=== PATIENT | male | born 1945 | race Caucasian/White ===

== ENCOUNTER 2016-10-10 21:40 | Inpatient (IN) | payer MEDICARE, MEDICAID ==
[2016-10-10] MEDS ORDERED: Ondansetron 4 MG Tab.DIS PO PRN (23:44)
[2016-10-10] MEDS ORDERED: Magnesium Hydroxide 400 MG/5 ML Susp 30 ML Cup PO PRN (23:44)
[2016-10-10] MEDS ORDERED: Ondansetron 4 MG/2 ML SDV IV PRN (23:44)
[2016-10-10] MEDS ORDERED: CARBOXYMETHYLCELLULOSE SODIUM 1% EYELF PRN (23:57)
[2016-10-10] MEDS ORDERED: Polyethylene Glycol 3350 Powder 17 GM Packet PO PRN (23:57)
[2016-10-11] MEDS: Sodium Chloride 0.9% 1,000 ML IV SCH ×3 (00:22→15:17)
[2016-10-11] MEDS ORDERED: Levofloxacin/Dextrose 5%-Water 750 MG in Premix Bag 1 BAG IV ONE (00:38)
[2016-10-11] MEDS ORDERED: Levofloxacin/Dextrose 5%-Water 150 ML IV ONE ×2 (01:13→23:26)
[2016-10-11] MEDS: LORazepam 1 MG Tab PO SCH ×4 (03:23→21:09)
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
[2016-10-11] MEDS ORDERED: TACROLIMUS TOP SCH (09:00)
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
[2016-10-11] MEDS: Sucralfate 1 GM Tab PO SCH ×4 (09:37→21:08)
[2016-10-11] MEDS: Pantoprazole 40 MG Tab.CR PO SCH (09:37)
[2016-10-11] MEDS ORDERED: Levofloxacin/Dextrose 5%-Water 750 MG in Premix Bag 1 BAG IV SCH (10:00)
[2016-10-11] MEDS ORDERED: Magnesium Sulfate/Water 40 GM/1,000 ML BAG IV SCH (10:15)
[2016-10-11] MEDS ORDERED: Tuberculin, PPD 5 Units/0.1 ML 1 ML MDV IDERM ONE ×2 (10:21→10:30)
[2016-10-11] MEDS ORDERED: Sodium Chloride 0.9% 250 ML IV SCH (10:30)
[2016-10-11] MEDS: Thiamine 200 MG/2 ML MDV IV SCH (10:34)
[2016-10-11] MEDS: Lanolin/Mineral Oil/Petrolatum Ophth Oint 3.5 GM Tube EYELF SCH (21:33)
[2016-10-11] MEDS ORDERED: Sodium Chloride 0.9% 1,000 ML IV SCH (21:45)
[2016-10-11] MEDS: Levofloxacin/Dextrose 5%-Water 750 MG in Premix Bag 1 BAG IV SCH (23:39)
[2016-10-12] MEDS ORDERED: Tuberculin, PPD 5 Units/0.1 ML 1 ML MDV IDERM ONE (07:45)
[2016-10-12] MEDS: Sucralfate 1 GM Tab PO SCH ×4 (08:21→21:27)
[2016-10-12] MEDS: Pantoprazole 40 MG Tab.CR PO SCH (08:21)
[2016-10-12] MEDS: Thiamine 200 MG/2 ML MDV IV SCH (08:23)
[2016-10-12] MEDS: Polyvinyl Alcohol 1.4% Ophth Soln 15 ML Bottle EYELF PRN ×2 (08:25→21:21)
--- NOTE | 2016-10-12 08:46 | PCM.PN ---
- General Info Date of Service: 10/12/16 Subjective Update: No new symptoms overnight, except that the complaints of frequency of urination. He denies muscle weakness chest pain or shortness of breath. According to the nursing staff has been no withdrawal symptoms noted. However should be noted that he is a poor historian due to language barrier. No seizures have been reported normal vomiting or diarrhea. Functional Status: Reports: Tolerating Diet. Denies: New Symptoms - Review of Systems General: Denies: Fever, Weakness HEENT: Reports: No Symptoms Pulmonary: Reports: Cough Cardiovascular: Reports: No Symptoms Gastrointestinal: Reports: No Symptoms Genitourinary: Reports: Frequency. Denies: No Symptoms, Burning Musculoskeletal: Reports: No Symptoms Skin: Reports: No Symptoms Neurological: Reports: No Symptoms Psychiatric: Reports: No Symptoms - Patient Data Vitals - Most Recent: Last Vital Signs Temp 98.5 F 10/12/16 04:00 Pulse 70 10/12/16 06:00 Resp 23 H 10/12/16 06:00 BP 126/86 10/12/16 06:00 Pulse Ox 95 10/12/16 06:00 Weight - Most Recent: 75.75 kg I&O - Last 24 Hours: Intake & Output 10/11/16 10/12/16 10/12/16 22:59 06:59 14:59 Intake Total 1780 1189 Output Total 575 1750 Balance 1205 -561 Lab Results Last 24 Hours: Laboratory Results - last 24 hr 10/11/16 10/11/16 10/12/16 Range/Units 10:32 10:32 06:40 WBC 6.3 (4.5-12.0) X10-3/uL RBC 4.12 L (4.30-5.75) x10(6)uL Hgb 13.6 (11.5-15.5) g/dL Hct 41.1 (30.0-51.3) % MCV 99.7 H (80-96) fL MCH 33.0 (27.7-33.6) pg MCHC 33.1 (32.2-35.4) g/dL RDW 16.6 H (11.5-15.5) % Plt Count 19 L* (125-369) X10(3)uL MPV 8.1 (7.4-10.4) fL Neut % (Auto) 65.6 (46-82) % Lymph % (Auto) 23.8 (13-37) % Norman % (Auto) 7.7 (4-12) % Eos % (Auto) 2 (1.0-5.0) % Baso % (Auto) 1 (0-2) % Neut # (Auto) 4.2 (1.6-8.3) # Lymph # (Auto) 1.5 (0.6-5.0) # Norman # (Auto) 0.5 (0.0-1.3) # Eos # (Auto) 0.1 (0.0-0.8) # Baso # (Auto) 0.0 (0.0-0.2) # Sodium (135-145) mmol/L Potassium (3.5-5.3) mmol/L Chloride (100-110) mmol/L Carbon Dioxide (23-29) mmol/L BUN (8-23) mg/dL Creatinine (0.6-1.3) mg/dL Est Cr Clr Drug Dosing mL/min Estimated GFR (MDRD) (>60) BUN/Creatinine Ratio (9-20) Glucose (80-116) mg/dL Calcium (8.6-10.2) mg/dL Phosphorus (3.0-4.6) mg/dL Magnesium (1.8-2.5) mg/dL Total Bilirubin (0.1-1.3) mg/dL AST (5-27) IU/L ALT (14-26) IU/L Alkaline Phosphatase (56-112) IU/L Ammonia 51 Total Protein (6.0-8.0) g/dL Albumin (3.2-4.6) g/dL Globulin g/dL Albumin/Globulin Ratio Blood Type O POSITIVE Gel Antibody Screen Negative 10/12/16 Range/Units 06:40 WBC (4.5-12.0) X10-3/uL RBC (4.30-5.75) x10(6)uL Hgb (11.5-15.5) g/dL Hct (30.0-51.3) % MCV (80-96) fL MCH (27.7-33.6) pg MCHC (32.2-35.4) g/dL RDW (11.5-15.5) % Plt Count (125-369) X10(3)uL MPV (7.4-10.4) fL Neut % (Auto) (46-82) % Lymph % (Auto) (13-37) % Norman % (Auto) (4-12) % Eos % (Auto) (1.0-5.0) % Baso % (Auto) (0-2) % Neut # (Auto) (1.6-8.3) # Lymph # (Auto) (0.6-5.0) # Norman # (Auto) (0.0-1.3) # Eos # (Auto) (0.0-0.8) # Baso # (Auto) (0.0-0.2) # Sodium 134 L (135-145) mmol/L Potassium 3.0 L (3.5-5.3) mmol/L Chloride 106 (100-110) mmol/L Carbon Dioxide 25 (23-29) mmol/L BUN 5 L (8-23) mg/dL Creatinine 0.4 L (0.6-1.3) mg/dL Est Cr Clr Drug Dosing 186.74 mL/min Estimated GFR (MDRD) > 60 (>60) BUN/Creatinine Ratio 12.5 (9-20) Glucose 102 (80-116) mg/dL Calcium 6.6 L (8.6-10.2) mg/dL Phosphorus 1.9 L (3.0-4.6) mg/dL Magnesium 3.5 H* (1.8-2.5) mg/dL Total Bilirubin 2.9 H (0.1-1.3) mg/dL AST 133 H D (5-27) IU/L ALT 47 H D (14-26) IU/L Alkaline Phosphatase 118 H (56-112) IU/L Ammonia Total Protein 7.6 (6.0-8.0) g/dL Albumin 2.1 L (3.2-4.6) g/dL Globulin 5.5 g/dL Albumin/Globulin Ratio 0.4 Blood Type Gel Antibody Screen Alonzo Results Last 24 Hours: Microbiology 10/11/16 01:05 Aerobic Blood Culture - Preliminary Blood - Venous - Lab Draw NO GROWTH AFTER 1 DAY Anaerobic Blood Culture - Preliminary NO GROWTH AFTER 1 DAY 10/11/16 01:10 Aerobic Blood Culture - Preliminary Blood - Venous NO GROWTH AFTER 1 DAY Anaerobic Blood Culture - Preliminary NO GROWTH AFTER 1 DAY Med Orders - Current: Current Medications Artificial Tears (Artificial Tears) 0.5 gm EYELF BEDTIME [facility] Last Admin: 10/11/16 21:33 Dose: Not Given Artificial Tears (Liquitears 1.4% Ophth Soln) 0 ml EYELF Q2H PRN PRN Reason: Dry Eyes Last Admin: 10/12/16 08:25 Dose: 1 drop Levofloxacin/Dextrose 750 mg/ (Premix) 150 mls @ 100 mls/hr IV Q24H [facility] Last Admin: 10/11/16 23:39 Dose: 100 mls/hr Lorazepam (Ativan) 0 mg PO ASDIRECTED [facility] PRN Reason: Protocol Last Admin: 10/11/16 21:09 Dose: 1 mg Non-Formulary Medication (Tacrolimus [Protopic 0.1% Oint]) 1 applic TOP BID [facility] Ondansetron HCl (Zofran Odt) 4 mg PO Q4H PRN PRN Reason: nausea, able to take PO Ondansetron HCl (Zofran) 4 mg IV Q4H PRN PRN Reason: Nausea/Vomiting Pantoprazole Sodium (Protonix) 40 mg PO ACBREAKFAST [facility] Last Admin: 10/12/16 08:21 Dose: 40 mg Polyethylene Glycol (Miralax) 17 gm PO DAILY PRN PRN Reason: Constipation Potassium Chloride (Klor-Con M20) 20 meq PO BID [facility] Sucralfate (Carafate) 1 gm PO QIDACANDBED [facility] Last Admin: 10/12/16 08:21 Dose: 1 gm Thiamine HCl (Vitamin B-1) 100 mg IV DAILY [facility] Last Admin: 10/12/16 08:23 Dose: 100 mg Discontinued Medications Artificial Tears (Refresh Liquigel 1%) 0 ml EYELF Q2H PRN PRN Reason: Dry Eyes Sodium Chloride (Normal Saline) 1,000 mls @ 150 mls/hr IV ASDIRECTED [facility] Last Admin: 10/11/16 15:17 Dose: 150 mls/hr Levofloxacin/Dextrose 750 mg/ (Premix) 150 mls @ 100 mls/hr IV ONETIME ONE Stop: 10/11/16 02:07 Last Admin: 10/11/16 01:18 Dose: 100 mls/hr Levofloxacin/Dextrose (Levaquin In D5w 750 Mg/150 Ml) Confirm Administered Dose 150 mls @ as directed IV .STK-MED ONE Stop: 10/11/16 01:14 Last Admin: 10/11/16 02:03 Dose: Not Given Levofloxacin/Dextrose 750 mg/ (Premix) 150 mls @ 100 mls/hr IV Q24H [facility] Last Admin: 10/11/16 10:24 Dose: Not Given Magnesium Sulfate (Magnesium Sulfate 40 Gm In Water 1000 Ml) 40 gm in 1,000 mls @ 25 mls/hr IV ASDIRECTED [facility] PRN Reason: 1 GM/HR Sodium Chloride (Normal Saline) 250 mls @ 100 mls/hr IV ASDIRECTED [facility] Last Admin: 10/11/16 23:40 Dose: 100 mls/hr Sodium Chloride (Normal Saline) 1,000 mls @ 75 mls/hr IV ASDIRECTED [facility] Last Admin: 10/11/16 21:58 Dose: 75 mls/hr Levofloxacin/Dextrose (Levaquin In D5w 750 Mg/150 Ml) Confirm Administered Dose 150 mls @ as directed IV .STK-MED ONE Stop: 10/11/16 23:27 Last Admin: 10/11/16 23:38 Dose: Not Given Magnesium Hydroxide (Milk Of Magnesia) 30 ml PO Q12H PRN PRN Reason: Constipation Sucralfate (Carafate) 1 gm PO QID [facility] Last Admin: 10/11/16 21:08 Dose: 1 gm Tuberculin PPD (Aplisol) 5 unit IDERM ONETIME ONE Stop: 10/11/16 10:22 Last Admin: 10/12/16 08:21 Dose: 5 unit Tuberculin PPD (Aplisol) 5 unit IDERM ONETIME ONE Stop: 10/12/16 07:46 - Exam Quality Assessment: No: Supplemental Oxygen General: Alert, Oriented HEENT: Other (legally blind.left) Neck: Supple Lungs: Clear to Auscultation, Normal Respiratory Effort GI/Abdominal Exam: Normal Bowel Sounds, Soft, Non-Tender, No Organomegaly, No Distention, No Abnormal Bruit, No Mass, Pelvis Stable, Distended. No: Rebound, Tender (Male) Exam: No Hernia, Normal Inspection, Normal Prostate, Circumcised Extremities: Normal Inspection, Normal Range of Motion, Non-Tender, No Pedal Edema, Normal Capillary Refill Skin: Warm, Dry, Intact Wound/Incisions: Healing Well Neurological: No New Focal Deficit Psy/Mental Status: Alert, Normal Affect, Normal Mood - Problem List & Annotations (1) Withdrawal symptoms, alcohol SNOMED Code(s): 851381676 Code(s): F10.239 - ALCOHOL DEPENDENCE WITH WITHDRAWAL, UNSPECIFIED Status: Acute Current Visit: Yes Qualifiers: Complication of substance-induced condition: uncomplicated Qualified Code(s ): F10.230 - Alcohol dependence with withdrawal, uncomplicated (2) Hypomagnesemia SNOMED Code(s): 672920859 Code(s): E83.42 - HYPOMAGNESEMIA Status: Acute Current Visit: Yes (3) Thrombocytopenia SNOMED Code(s): 283565596 Code(s): D69.6 - THROMBOCYTOPENIA, UNSPECIFIED Status: Acute Current Visit: Yes (4) Alcoholism SNOMED Code(s): 3240535 Code(s): F10.20 - ALCOHOL DEPENDENCE, UNCOMPLICATED Status: Acute Current Visit: No Annotation/Comment:: Alcohol level at 0.5 in pm. Slight tremor. Patient is stable and wishes to be discharged. Does not want to treat / discuss alcohol use. Treatment x 1, remote. VSS. Discharge with . (5) UTI (urinary tract infection) SNOMED Code(s): 49523034 Code(s): N39.0 - URINARY TRACT INFECTION, SITE NOT SPECIFIED Status: Acute Current Visit: Yes Qualifiers: Hematuria presence: without hematuria (6) Pneumonia SNOMED Code(s): 049584798 Code(s): J18.9 - PNEUMONIA, UNSPECIFIED ORGANISM Status: Acute Current Visit: Yes Qualifiers: Laterality: left (7) Hypokalemia SNOMED Code(s): 84970474 Code(s): E87.6 - HYPOKALEMIA Status: Acute Current Visit: Yes (8) Legal blindness SNOMED Code(s): 96648700 Code(s): H54.8 - LEGAL BLINDNESS, DEFINED IN [place] Status: Chronic Current Visit: Yes (9) Ascites SNOMED Code(s): 545866946 Code(s): R18.8 - OTHER ASCITES Status: Acute Current Visit: Yes Qualifiers: Ascites type: due to alcoholic cirrhosis Qualified Code(s): K70.31 - Alcoholic cirrhosis of liver with ascites - Problem List Review Problem List Initiated/Reviewed/Updated: Yes - My Orders Last 24 Hours: My Active Orders 10/11/16 10:00 Thiamine [Vitamin B-1] 100 mg IV DAILY 10/11/16 10:12 LEGIONELLA,PNEUMO AG URINE [REF] Routine 10/11/16 10:23 Transfuse Platelets [COMM] Routine 10/11/16 10:32 M.PNEUMONIAE ABS, IGG & IGM [REF] Stat 10/12/16 00:00 Levofloxacin/Dextrose 5%-Water [Levaquin in D5W 750 MG/150 ML] 750 mg Premix Bag 1 bag IV Q24H 10/12/16 08:34 Convert IV to Saline Lock [OM.PC] Urgent 10/12/16 08:36 Patient Status Manage Transfer [TRANSFER] Routine 10/12/16 08:45 Potassium Chloride [Klor-Con M20] 20 meq PO BID 10/12/16 16:00 MAGNESIUM [CHEM] Routine 10/13/16 05:11 CBC WITH AUTO DIFF [HEME] AM COMPREHENSIVE METABOLIC PN,CMP [CHEM] AM - Plan Plan:: I will discontinue magnesium replacement because of iatrogenic hypermagensemia. A plan to repeat a magnesium level at 4 PM today. Also discontinued all IV fluids. I will repeat a CBC and CMP in the morning. Replaced potassium with potassium chloride orally starting today. I believe is getting ready for discharge but I will transfer him to a medical bed this morning,encourage ambulation with the hope of discharge tomorrow if stable. We are still waiting for the urine culture and the definitive x-ray report.
[2016-10-12] MEDS: Potassium Chloride 20 MEQ Tab.ER PO SCH ×2 (09:37→21:26)
[2016-10-12] MEDS ORDERED: Sodium Chloride 0.9% 250 ML IV SCH (09:45)
[2016-10-12] MEDS ORDERED: Acetaminophen 325 MG Tab PO PRN (15:43)
[2016-10-12] MEDS: Lanolin/Mineral Oil/Petrolatum Ophth Oint 3.5 GM Tube EYELF SCH (21:23)
[2016-10-12] MEDS: LORazepam 1 MG Tab PO SCH (21:29)
[2016-10-12] MEDS: Levofloxacin/Dextrose 5%-Water 750 MG in Premix Bag 1 BAG IV SCH (23:35)
[2016-10-13] MEDS: Pantoprazole 40 MG Tab.CR PO SCH (06:56)
[2016-10-13] MEDS: Sucralfate 1 GM Tab PO SCH ×2 (06:56→15:50)
[2016-10-13 07:58] VITALS: BP 136/76
--- NOTE | 2016-10-13 08:01 | PCM.PN ---
- General Info Date of Service: 10/13/16 Subjective Update: Patient feels better slept well overnight has no new complaints. He expresses interest to quit drinking but not in an inpatient status. He still has cold symptoms that include nasal congestion and cough but no fever or shortness of breath. He denies muscle weakness or chest pain. His oral intake has remained very good and he slept well last night. - Patient Data Vitals - Most Recent: Last Vital Signs Temp 98.3 F 10/13/16 04:39 Pulse 84 10/13/16 04:39 Resp 25 H 10/13/16 04:39 BP 138/83 10/13/16 04:39 Pulse Ox 95 10/13/16 04:39 Weight - Most Recent: 75.75 kg I&O - Last 24 Hours: Intake & Output 10/12/16 10/13/16 10/13/16 22:59 06:59 14:59 Intake Total 180 Balance 180 Lab Results Last 24 Hours: Laboratory Results - last 24 hr 10/12/16 10/13/16 10/13/16 Range/Units 16:10 06:28 06:28 WBC 6.9 (4.5-12.0) X10-3/uL RBC 4.15 L (4.30-5.75) x10(6)uL Hgb 13.7 (11.5-15.5) g/dL Hct 41.8 (30.0-51.3) % MCV 100.6 H (80-96) fL MCH 32.9 (27.7-33.6) pg MCHC 32.7 (32.2-35.4) g/dL RDW 16.7 H (11.5-15.5) % Plt Count 16 L* (125-369) X10(3)uL MPV 8.1 (7.4-10.4) fL Neut % (Auto) 59.9 (46-82) % Lymph % (Auto) 28.7 (13-37) % Thayer % (Auto) 8.6 (4-12) % Eos % (Auto) 2 (1.0-5.0) % Baso % (Auto) 0 (0-2) % Neut # (Auto) 4.1 (1.6-8.3) # Lymph # (Auto) 2.0 (0.6-5.0) # Thayer # (Auto) 0.6 (0.0-1.3) # Eos # (Auto) 0.2 (0.0-0.8) # Baso # (Auto) 0.0 (0.0-0.2) # Sodium 134 L (135-145) mmol/L Potassium 3.4 L (3.5-5.3) mmol/L Chloride 108 (100-110) mmol/L Carbon Dioxide 21 L (23-29) mmol/L BUN 5 L (8-23) mg/dL Creatinine 0.4 L (0.6-1.3) mg/dL Est Cr Clr Drug Dosing 186.74 mL/min Estimated GFR (MDRD) > 60 (>60) BUN/Creatinine Ratio 12.5 (9-20) Glucose 93 (80-116) mg/dL Calcium 6.9 L (8.6-10.2) mg/dL Magnesium 2.6 H (1.8-2.5) mg/dL Total Bilirubin 3.0 H (0.1-1.3) mg/dL AST 123 H (5-27) IU/L ALT 46 H (14-26) IU/L Alkaline Phosphatase 121 H (56-112) IU/L Total Protein 7.8 (6.0-8.0) g/dL Albumin 2.3 L (3.2-4.6) g/dL Globulin 5.5 g/dL Albumin/Globulin Ratio 0.4 Alonzo Results Last 24 Hours: Microbiology 10/10/16 20:00 Urine Culture - Final Urine, Bladder Staphylococcus Aureus 10/11/16 01:05 Aerobic Blood Culture - Preliminary Blood - Venous - Lab Draw NO GROWTH AFTER 2 DAYS Anaerobic Blood Culture - Preliminary NO GROWTH AFTER 2 DAYS 10/11/16 01:10 Aerobic Blood Culture - Preliminary Blood - Venous NO GROWTH AFTER 2 DAYS Anaerobic Blood Culture - Preliminary NO GROWTH AFTER 2 DAYS Med Orders - Current: Current Medications Acetaminophen (Tylenol) 650 mg PO Q6H PRN PRN Reason: Pain Last Admin: 10/12/16 16:03 Dose: 650 mg Artificial Tears (Artificial Tears) 0.5 gm EYELF BEDTIME [facility] Last Admin: 10/12/16 21:23 Dose: 1 applicful Artificial Tears (Liquitears 1.4% Ophth Soln) 0 ml EYELF Q2H PRN PRN Reason: Dry Eyes Last Admin: 10/12/16 21:21 Dose: 1 drop Levofloxacin/Dextrose 750 mg/ (Premix) 150 mls @ 100 mls/hr IV Q24H [facility] Last Admin: 10/12/16 23:35 Dose: 100 mls/hr Sodium Chloride (Normal Saline) 250 mls @ 100 mls/hr IV ASDIRECTED [facility] Lorazepam (Ativan) 0 mg PO ASDIRECTED [facility] PRN Reason: Protocol Last Admin: 10/12/16 21:29 Dose: 1 mg Non-Formulary Medication (Tacrolimus [Protopic 0.1% Oint]) 1 applic TOP BID [facility] Ondansetron HCl (Zofran Odt) 4 mg PO Q4H PRN PRN Reason: nausea, able to take PO Ondansetron HCl (Zofran) 4 mg IV Q4H PRN PRN Reason: Nausea/Vomiting Pantoprazole Sodium (Protonix) 40 mg PO ACBREAKFAST [facility] Last Admin: 10/13/16 06:56 Dose: 40 mg Polyethylene Glycol (Miralax) 17 gm PO DAILY PRN PRN Reason: Constipation Potassium Chloride (Klor-Con M20) 20 meq PO BID [facility] Last Admin: 10/12/16 21:26 Dose: 20 meq Sucralfate (Carafate) 1 gm PO QIDACANDBED [facility] Last Admin: 10/13/16 06:56 Dose: 1 gm Thiamine HCl (Vitamin B-1) 100 mg IV DAILY [facility] Last Admin: 10/12/16 08:23 Dose: 100 mg Discontinued Medications Artificial Tears (Refresh Liquigel 1%) 0 ml EYELF Q2H PRN PRN Reason: Dry Eyes Sodium Chloride (Normal Saline) 1,000 mls @ 150 mls/hr IV ASDIRECTED [facility] Last Admin: 10/11/16 15:17 Dose: 150 mls/hr Levofloxacin/Dextrose 750 mg/ (Premix) 150 mls @ 100 mls/hr IV ONETIME ONE Stop: 10/11/16 02:07 Last Admin: 10/11/16 01:18 Dose: 100 mls/hr Levofloxacin/Dextrose (Levaquin In D5w 750 Mg/150 Ml) Confirm Administered Dose 150 mls @ as directed IV .STK-MED ONE Stop: 10/11/16 01:14 Last Admin: 10/11/16 02:03 Dose: Not Given Levofloxacin/Dextrose 750 mg/ (Premix) 150 mls @ 100 mls/hr IV Q24H [facility] Last Admin: 10/11/16 10:24 Dose: Not Given Magnesium Sulfate (Magnesium Sulfate 40 Gm In Water 1000 Ml) 40 gm in 1,000 mls @ 25 mls/hr IV ASDIRECTED [facility] PRN Reason: 1 GM/HR Sodium Chloride (Normal Saline) 250 mls @ 100 mls/hr IV ASDIRECTED [facility] Last Admin: 10/11/16 23:40 Dose: 100 mls/hr Sodium Chloride (Normal Saline) 1,000 mls @ 75 mls/hr IV ASDIRECTED [facility] Last Admin: 10/11/16 21:58 Dose: 75 mls/hr Levofloxacin/Dextrose (Levaquin In D5w 750 Mg/150 Ml) Confirm Administered Dose 150 mls @ as directed IV .STK-MED ONE Stop: 10/11/16 23:27 Last Admin: 10/11/16 23:38 Dose: Not Given Magnesium Hydroxide (Milk Of Magnesia) 30 ml PO Q12H PRN PRN Reason: Constipation Sucralfate (Carafate) 1 gm PO QID [facility] Last Admin: 10/11/16 21:08 Dose: 1 gm Tuberculin PPD (Aplisol) 5 unit IDERM ONETIME ONE Stop: 10/11/16 10:22 Last Admin: 10/12/16 08:21 Dose: 5 unit - Exam Quality Assessment: No: Supplemental Oxygen General: Alert, Oriented, Cooperative HEENT: Other (legally blind) Neck: Supple Lungs: Clear to Auscultation, Normal Respiratory Effort Cardiovascular: Regular Rate, Regular Rhythm Psy/Mental Status: Alert, Normal Affect, Normal Mood - Problem List & Annotations (1) Withdrawal symptoms, alcohol SNOMED Code(s): 078532986 Code(s): F10.239 - ALCOHOL DEPENDENCE WITH WITHDRAWAL, UNSPECIFIED Status: Acute Current Visit: Yes Qualifiers: Complication of substance-induced condition: uncomplicated Qualified Code(s ): F10.230 - Alcohol dependence with withdrawal, uncomplicated (2) Hypomagnesemia SNOMED Code(s): 685070916 Code(s): E83.42 - HYPOMAGNESEMIA Status: Acute Current Visit: Yes (3) Thrombocytopenia SNOMED Code(s): 173813870 Code(s): D69.6 - THROMBOCYTOPENIA, UNSPECIFIED Status: Acute Current Visit: Yes (4) Alcoholism SNOMED Code(s): 8445913 Code(s): F10.20 - ALCOHOL DEPENDENCE, UNCOMPLICATED Status: Acute Current Visit: No Annotation/Comment:: Alcohol level at 0.5 in pm. Slight tremor. Patient is stable and wishes to be discharged. Does not want to treat / discuss alcohol use. Treatment x 1, remote. VSS. Discharge with . (5) UTI (urinary tract infection) SNOMED Code(s): 71593371 Code(s): N39.0 - URINARY TRACT INFECTION, SITE NOT SPECIFIED Status: Acute Current Visit: Yes Qualifiers: Hematuria presence: without hematuria (6) Pneumonia SNOMED Code(s): 877429198 Code(s): J18.9 - PNEUMONIA, UNSPECIFIED ORGANISM Status: Acute Current Visit: Yes Qualifiers: Laterality: left (7) Hypokalemia SNOMED Code(s): 19656457 Code(s): E87.6 - HYPOKALEMIA Status: Acute Current Visit: Yes (8) Legal blindness SNOMED Code(s): 43597966 Code(s): H54.8 - LEGAL BLINDNESS, DEFINED IN [place] Status: Chronic Current Visit: Yes (9) Ascites SNOMED Code(s): 717893651 Code(s): R18.8 - OTHER ASCITES Status: Acute Current Visit: Yes Qualifiers: Ascites type: due to alcoholic cirrhosis Qualified Code(s): K70.31 - Alcoholic cirrhosis of liver with ascites - Problem List Review Problem List Initiated/Reviewed/Updated: Yes - My Orders Last 24 Hours: My Active Orders 10/12/16 08:34 Convert IV to Saline Lock [OM.PC] Urgent 10/12/16 09:00 Potassium Chloride [Klor-Con M20] 20 meq PO BID 10/12/16 09:45 Sodium Chloride 0.9% [Normal Saline] 250 ml IV ASDIRECTED 10/12/16 15:43 Acetaminophen [Tylenol] 650 mg PO Q6H PRN - Plan Plan:: I I will discharge him home today. I reviewed his urine culture that showed Staphylococcus aureus, sensitive to Augmentin. I will discharge him home on this hopefully to cover his infiltrate in the left chest area. Like him to come back to the office on Thursday for follow-up. His platelets are still low and he will need to be seen by a GI specialist because of the alcoholic liver cirrhosis. I will also send him home on CAMPRAL,for ETOH treatement
[2016-10-13] MEDS: Potassium Chloride 20 MEQ Tab.ER PO SCH (10:32)
[2016-10-13] MEDS: Thiamine 200 MG/2 ML MDV IV SCH (10:33)
--- NOTE | 2016-10-14 00:58 | DISCH ---
DISCHARGE DATE: 10/13/2016 REASON FOR ADMISSION: 1. Alcohol withdrawal symptoms. 2. Urinary tract infection. 3. Alcoholic liver cirrhosis. 4. Hypomagnesemia. DISCHARGE DIAGNOSES: 1. Urinary tract infection, Staph aureus. 2. Hypomagnesemia. 3. Thrombocytopenia. 4. Alcoholism. 5. Pneumonia. 6. Legal blindness left eye. 7. Hypokalemia. CONSULTATIONS: None. BRIEF HISTORY: A 71-year-old male admitted to the hospital for withdrawal symptoms that include tremors, decreased appetite, weakness over the last week or 2. He also noted to have cough, and chest x-ray showed an infiltrate on the left side upper area. Initial tests did show low magnesium, potassium, and platelets. He was started on IV antibiotics, Levaquin, IV fluids, thiamine, and potassium replacement. He was also given 6 units of platelets. His symptoms improved gradually. He only needed one or two doses of lorazepam initially on admission. By the day of discharge, he was eating, drinking, and strong enough to go back home. He did not want to go to an inpatient treatment facility. I chose to discharge him home on Campral 666 mg 3 times a day. I will also send him home on Augmentin 875 mg b.i.d. I would like him to see me in the office on Thursday. Please note that I spent more than 35 minutes in the discharge of this patient. /[id number] VIVEK/ROSY
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
== END 2016-10-13 12:10 | disposition home or self-care (01) | DRG 896 ==
LOC: FB.ICU 21:40 → FB.MS 10-12 08:36
PROVIDERS: ADMIT Emergency Medicine; ATTEND Family Medicine
PROC: 30233R1 Transfusion of Nonautologous Platelets into Peripheral Vein, Percutaneous Approach (ICD-10-PCS; principal; 2016-10-11)
DX: F10.239 Alcohol dependence with withdrawal, unspecified (principal); J18.9 Pneumonia, unspecified organism; N39.0 Urinary tract infection, site not specified; B95.61 Methicillin susceptible Staphylococcus aureus infection as the cause of diseases classified elsewhere; K70.31 Alcoholic cirrhosis of liver with ascites; E83.42 Hypomagnesemia; D69.6 Thrombocytopenia, unspecified; E87.6 Hypokalemia; E86.0 Dehydration; H54.8 Legal blindness, as defined in USA; K70.10 Alcoholic hepatitis without ascites; F17.210 Nicotine dependence, cigarettes, uncomplicated; Z79.899 Other long term (current) drug therapy
CPT/HCPCS: 36415; 36430; 71020; 80053; 81001; 82140; 82550; 83735; 84100; 84484; 85025; 85610; 85730; 86580; 86738; 86850; 86900; 86901; 87040; 87086; 87088; 87186; 87449; 93005; A9270-GY; G0480; J1956; J3411; J3475; J7040; J7050; P9034

== ENCOUNTER 2017-07-13 17:34 | Emergency (ER) | payer MEDICARE, MEDICAID ==
[2017-07-13 19:32] LABS: ACETAMINOPHEN < 2 ug/mL (10-30)
[2017-07-13 20:09] VITALS: BP 123/65
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
== END 2017-07-13 20:15 | disposition home or self-care (01) ==
LOC: FB.ED 17:34
DX: F10.20 Alcohol dependence, uncomplicated (principal); I50.9 Heart failure, unspecified; M54.5 Low back pain; G89.29 Other chronic pain; F43.10 Post-traumatic stress disorder, unspecified; Z98.890 Other specified postprocedural states; Z79.899 Other long term (current) drug therapy
CPT/HCPCS: 36415; 80053; 80305; 81001; 84443; 85025; 99283; 99284; G0480

== ENCOUNTER 2019-06-06 16:25 | Emergency (ER) | payer MEDICARE, MEDICAID ==
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
[2019-06-06] MEDS ORDERED: Vancomycin 1 GM SDV ONE (18:20)
[2019-06-06] MEDS ORDERED: Aspirin 81 MG Tab.Chew PO ONE (18:32)
[2019-06-06] MEDS ORDERED: Piperacillin/Tazobactam 3.375 GM in Sodium Chloride 0.9% 50 ML IV ONE (18:35)
[2019-06-06] MEDS ORDERED: Iopamidol 755 Mg/ML 100 ML Bottle IV ONE (18:44)
[2019-06-06] MEDS ORDERED: Sodium Chloride 0.9% 1,000 ML IV SCH (18:45)
[2019-06-06] MEDS ORDERED: Magnesium Sulfate/Water 50 ML ONE (18:52)
[2019-06-06] MEDS ORDERED: Magnesium Sulfate/Water 2 GM in Premix Bag 1 BAG IV ONE (20:27)
[2019-06-06 20:35] VITALS: BP 116/76; PULSE 108
== END 2019-06-06 21:16 ==
LOC: FB.ED 16:25
DX: E83.42 Hypomagnesemia (principal); L03.311 Cellulitis of abdominal wall; Z88.8 Allergy status to other drugs, medicaments and biological substances; I10 Essential (primary) hypertension; M32.9 Systemic lupus erythematosus, unspecified
CPT/HCPCS: 36415; 71046; 74176; 80053; 80307; 81001; 83605; 83735; 84484; 85025; 85610; 85730; 87040; 93005; 93010; 96365; 96366; 96367; 96368; 99284; 99285; A9270; J2543; J3370; J3475; J7030; J7050

== ENCOUNTER 2019-06-09 10:34 | Inpatient (IN) | payer MEDICARE, MEDICAID ==
[2019-06-09] MEDS ORDERED: Prochlorperazine 10 MG Tab PO PRN (15:54)
[2019-06-09] MEDS ORDERED: OLANZapine 5 MG Tab PO PRN (15:54)
[2019-06-09] MEDS ORDERED: Dexamethasone 4 MG Tab PO PRN (15:54)
[2019-06-09] MEDS ORDERED: VANCOMYCIN HCL IV SCH (16:00)
[2019-06-09] MEDS ORDERED: DEXTROSE 5% IV SCH (16:00)
[2019-06-09] MEDS ORDERED: [UNRECOGNIZED DRUG - OTHER] IV SCH (16:00)
[2019-06-09] MEDS ORDERED: Hydrocortisone Acetate 1% Crm 30 GM Tube TOP PRN (16:15)
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
[2019-06-09] MEDS: LACTULOSE PO SCH ×4 (17:58→20:52)
[2019-06-09] MEDS: oxyCODONE 5 MG Tab PO PRN (18:58)
[2019-06-09] MEDS: Sodium Chloride 0.9% 10 ML Syringe FLUSH PRN (19:01)
[2019-06-09] MEDS: Cyclobenzaprine 10 MG Tab PO SCH (20:52)
[2019-06-09] MEDS: Carboxymethylcellulose 0.5%/Glycerin 0.9% Ophth Soln 15 ML Bottle EYEBOTH SCH (20:53)
[2019-06-09] MEDS ORDERED: Lactulose Soln 10 GM/15 ML 30 ML UD Cup PO SCH (21:00)
[2019-06-09] MEDS ORDERED: TACROLIMUS TOP SCH (21:00)
[2019-06-10] MEDS: Sodium Chloride 0.9% 10 ML Syringe FLUSH PRN ×4 (05:40→22:51)
[2019-06-10] MEDS: oxyCODONE 5 MG Tab PO PRN ×3 (05:44→21:35)
[2019-06-10] MEDS: Spironolactone 50 MG Tab PO SCH (08:54)
[2019-06-10] MEDS: LACTULOSE PO SCH ×2 (09:05)
[2019-06-10] MEDS: Vitamin B Complex with Vitamin C Tab PO SCH (09:06)
[2019-06-10] MEDS: Folic Acid 1 MG Tab PO SCH (09:06)
[2019-06-10] MEDS: Carboxymethylcellulose 0.5%/Glycerin 0.9% Ophth Soln 15 ML Bottle EYEBOTH SCH ×2 (09:06→21:37)
[2019-06-10] MEDS: Furosemide 40 MG Tab PO SCH (10:00)
[2019-06-10] MEDS: Lactulose Soln 10 GM/15 ML 30 ML UD Cup PO SCH ×2 (14:25→21:41)
[2019-06-10] MEDS: Cyclobenzaprine 10 MG Tab PO SCH (21:39)
[2019-06-11] MEDS: Spironolactone 50 MG Tab PO SCH (08:57)
[2019-06-11] MEDS: Vitamin B Complex with Vitamin C Tab PO SCH (08:57)
[2019-06-11] MEDS: Lactulose Soln 10 GM/15 ML 30 ML UD Cup PO SCH ×3 (08:57→20:01)
[2019-06-11] MEDS: Folic Acid 1 MG Tab PO SCH (08:58)
[2019-06-11] MEDS: oxyCODONE 5 MG Tab PO PRN ×2 (08:58→16:36)
[2019-06-11] MEDS: Carboxymethylcellulose 0.5%/Glycerin 0.9% Ophth Soln 15 ML Bottle EYEBOTH SCH ×2 (08:58→20:00)
[2019-06-11] MEDS: Sodium Chloride 0.9% 10 ML Syringe FLUSH PRN ×3 (10:15→21:06)
[2019-06-11] MEDS: Cyclobenzaprine 10 MG Tab PO SCH (20:00)
[2019-06-12] MEDS: oxyCODONE 5 MG Tab PO PRN ×2 (02:56→09:03)
[2019-06-12] MEDS: Sodium Chloride 0.9% 10 ML Syringe FLUSH PRN ×5 (06:28→22:21)
[2019-06-12] MEDS ORDERED: Vancomycin 1 GM SDV ONE ×2 (08:28→19:52)
[2019-06-12] MEDS: Spironolactone 50 MG Tab PO SCH (08:45)
[2019-06-12] MEDS: Carboxymethylcellulose 0.5%/Glycerin 0.9% Ophth Soln 15 ML Bottle EYEBOTH SCH ×2 (08:45→20:51)
[2019-06-12] MEDS: Folic Acid 1 MG Tab PO SCH (08:45)
[2019-06-12] MEDS: Lactulose Soln 10 GM/15 ML 30 ML UD Cup PO SCH ×3 (08:45→20:49)
[2019-06-12] MEDS: Furosemide 40 MG Tab PO SCH (08:45)
[2019-06-12] MEDS: Vitamin B Complex with Vitamin C Tab PO SCH (08:45)
--- NOTE | 2019-06-12 11:49 | PCM.OPNOTE ---
- General Post-Op/Procedure Note Date of Surgery/Procedure: 06/12/19 Operative Procedure(s): Paracentesis Findings: 5 liters of cloudy peritoneal fluid aspirated from peritoneal cavity Pre Op Diagnosis: Ascities Post-Op Diagnosis: Same Anesthesia Technique: Local Primary Surgeon: Quentin Daly Pathology: none EBL in mLs: 3 Complications: None Condition: Good Free Text/Narrative:: Intake & Output 06/11/19 06/12/19 06/12/19 22:59 06:59 14:59 Intake Total 680 100 Output Total 450 400 Balance 230 -300
--- NOTE | 2019-06-12 14:27 | OR ---
DATE OF OPERATION: 06/12/2019 SURGEON: Quentin Daly MD PREOPERATIVE DIAGNOSES: Hepatic cirrhosis with ascites. POSTOPERATIVE DIAGNOSES: Hepatic cirrhosis with ascites. OPERATION PERFORMED: Paracentesis. INDICATIONS FOR SURGERY: This 73-year-old male has known hepatic insufficiency secondary to cirrhosis. He has developed ascites and requires periodic paracentesis. His last paracentesis was 4 days ago, and he has developed increasing abdominal distention from ascitic fluid. FINDINGS: Approximately 5 L of cloudy peritoneal fluid was aspirated from the peritoneal cavity. PROCEDURE IN DETAIL: Informed consent was obtained from this patient via an interpreter and translator. With the patient in his hospital bed, ultrasound was used to identify a safe access point into a pocket of ascitic fluid in the right lower quadrant. The area was marked, prepped, and draped, and the abdominal wall in this area anesthetized with Xylocaine. After a small incision was made, the peritoneal catheter was inserted over the Veress type needle into the peritoneal cavity, and cloudy peritoneal fluid was able to be aspirated. This was attached to low wall suction, and a total of approximately 5 L of cloudy peritoneal fluid was able to be aspirated. This was tolerated well by the patient who remained comfortable during the procedure. After fluid was no longer able to be aspirated, the aspirating catheter was removed, and a sterile dressing placed. At the close of the procedure, the patient's abdomen showed significant decompression, was soft and nontender. He tolerated the procedure well. ESTIMATED BLOOD LOSS: 3 mL. /[id number] BISHNU/ROSY
[2019-06-12] MEDS: traMADol 50 MG Tab PO PRN (20:49)
[2019-06-12] MEDS: Cyclobenzaprine 10 MG Tab PO SCH (20:51)
[2019-06-13] MEDS: oxyCODONE 5 MG Tab PO PRN ×3 (01:52→20:06)
[2019-06-13] MEDS: Sodium Chloride 0.9% 10 ML Syringe FLUSH PRN ×3 (05:14→21:16)
[2019-06-13] MEDS: Vancomycin/Dextrose 5%-Water 200 ML IV SCH ×2 (09:00→20:06)
[2019-06-13] MEDS: Spironolactone 50 MG Tab PO SCH (09:33)
[2019-06-13] MEDS: Lactulose Soln 10 GM/15 ML 30 ML UD Cup PO SCH ×3 (09:33→20:07)
[2019-06-13] MEDS: Carboxymethylcellulose 0.5%/Glycerin 0.9% Ophth Soln 15 ML Bottle EYEBOTH SCH ×2 (09:34→20:07)
[2019-06-13] MEDS: Vitamin B Complex with Vitamin C Tab PO SCH (09:34)
[2019-06-13] MEDS: Folic Acid 1 MG Tab PO SCH (09:34)
--- NOTE | 2019-06-13 11:53 | PN ---
DATE SEEN: 06/13/2019 REASON FOR VISIT: Ascites. HISTORY OF PRESENT ILLNESS: This is a 73-year-old male with ascites, persistent due to decompensated liver failure. He also has cellulitis of the abdominal wall and is on IV antibiotics in swing bed. Yesterday, Dr. Daly did tap paracentesis and withdrew about 5 L. His abdomen is still distended. He also complains of chronic back pain that is not improved, despite oxycodone. REVIEW OF SYSTEMS: No fever has been reported. No change in mental status. He feels weak and his legs cannot support him. ALLERGIES: Reviewed. MEDICATIONS: Reviewed. PAST MEDICAL HISTORY: Reviewed on [employer]. PHYSICAL EXAMINATION: GENERAL: Today, he is not in distress. VITAL SIGNS: Blood pressure is 96/64. He is afebrile. MENTAL STATUS: Alert. ABDOMEN: Distended but soft. CHEST: Clear. NEUROLOGIC: Normal. IMPRESSION: 1. Persistent abdominal ascites. 2. Cellulitis of the abdominal wall. 3. Liver failure. 4. Chronic back pain. 5. Thrombocytopenia. 6. Lung cancer. PLAN: I spoke with son and discussed hospice care. I do not feel that he will be ready for going home. As such, we should start to look for group home placement. I also floated the idea of hospice care and the son will discuss with his mom about this consultation, and it looks like he is open to it. For now, we will continue antibiotics, physical therapy, pain control, and periodic paracentesis. /[id number] VIVEK/ROSY
--- NOTE | 2019-06-13 11:57 | US ---
INDICATION: Ultrasound-guided paracentesis. LIMITED ULTRASOUND OF THE ABDOMEN: Utilizing ultrasonic guidance, paracentesis was obtained in the right lateral abdomen with 5.2 liters of fluid removed. MTDD
[2019-06-13] MEDS: Cyclobenzaprine 10 MG Tab PO SCH (20:07)
[2019-06-14] MEDS: oxyCODONE 5 MG Tab PO PRN (03:59)
[2019-06-14] MEDS: Sodium Chloride 0.9% 10 ML Syringe FLUSH PRN ×4 (06:40→21:25)
[2019-06-14] MEDS: traMADol 50 MG Tab PO PRN (06:44)
[2019-06-14] MEDS: Vancomycin/Dextrose 5%-Water 200 ML IV SCH ×2 (08:25→20:18)
[2019-06-14] MEDS: Spironolactone 50 MG Tab PO SCH (08:29)
[2019-06-14] MEDS: Lactulose Soln 10 GM/15 ML 30 ML UD Cup PO SCH ×3 (08:31→20:45)
[2019-06-14] MEDS: Carboxymethylcellulose 0.5%/Glycerin 0.9% Ophth Soln 15 ML Bottle EYEBOTH SCH ×2 (08:32→20:44)
[2019-06-14] MEDS: Furosemide 40 MG Tab PO SCH (08:32)
[2019-06-14] MEDS: Folic Acid 1 MG Tab PO SCH (08:32)
[2019-06-14] MEDS: Vitamin B Complex with Vitamin C Tab PO SCH (08:33)
[2019-06-14] MEDS: Naproxen 500 MG Tab PO SCH ×2 (10:44→20:45)
[2019-06-14] MEDS: oxyCODONE ER 10 MG TAB.ER PO SCH ×2 (10:44→20:43)
[2019-06-14] MEDS: Cyclobenzaprine 10 MG Tab PO SCH (20:46)
--- OUTSIDE RECORDS SUMMARY | 2019-06-15 08:17 | XMSREPORT ---
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 Neut Absolute 9.0 (H) 1.8 - 8.0 K/uL [address] Lymphocytes Absolute 0.6 (L) 0.8 - 4.1 K/uL [address] Monocytes Absolute 1.0 0.0 - 1.0 K/uL [address] Eosinophils Absolute 0.0 0.0 - 0.7 K/uL [address] Basophil Absolute 0.0 0.0 - 0.2 K/uL [address] Immature Granulocyte 0.15 (H) 0.00 - 0.[address] Absolute K/uL Neutrophils Abs. 9,000 /uL [address] (Segs and Bands) Neutrophils Percent 83.2 % [address] Lymphocytes Percent 5.9 % [address] Monocytes Percent 9.2 % [address] Immature Granulocyte 1.4 % [address] Percent Eosinophils Percent 0.1 % [address] Basophil Percent 0.2 % [address] Nucleated RBC 0 /[address] Specimen Blood Performing Organization Address [facility] Phone Number [address] [address] PHOSPHORUS (06/09/2019 6:26 AM CDT) Phosphorus 2.1 (L) 2.5 - 4.5 mg/dL [address] Specimen Blood Performing Organization Address [facility] Phone Number [address] [address] MAGNESIUM (06/09/2019 6:26 AM CDT) Magnesium 1.7 (L) 1.8 - 2.4 mg/dL [address] Specimen Blood Performing Organization Address [facility] Phone Number [address] [place] [address] C-REACTIVE PROTEIN QUANTITATIVE (06/09/2019 6:26 AM CDT) CRP 33.8 (H) 0.0 - 8.0 mg/L [address] Specimen Blood Performing Organization Address [facility] Phone Number [address] [address] COMPREHENSIVE METABOLIC PANEL (06/09/2019 6:26 AM CDT) Glucose 109 (H) 70 - 100 mg/dL [address] BUN 17 6 - 22 mg/dL [address] Creatinine 0.59 (L) 0.80 - 1.[address] mg/dL BUN/Creatinine Ratio 28.8 (H) 10.0 - 25.[address] Sodium 127 (L) 135 - 145 meq/L [address] Potassium 3.7 3.5 - 5.3 meq/L [address] Chloride 99 99 - 110 meq/L [address] CO2 23 20 - 29 meq/L [address] Anion Gap with K 9 6 - 20 meq/L [address] Calcium 7.6 (L) 8.5 - 10.[address] mg/dL Protein Total 4.6 (L) 6.0 - 8.2 g/dL [address] Albumin 1.7 (L) 3.5 - 5.0 g/dL [address] Alkaline Phosphatase 166 (H) 30 - 150 U/L [address] AST - SGOT 59 (H) 0 - 35 U/L [address] ALT - SGPT 45 0 - 55 U/L [address] Bilirubin Total 3.7 (H) 0.2 - 1.2 mg/dL [address] Corrected Calcium 9.4 8.5 - 10.[address] mg/dL Age [address] eGFR Non- >90 >=[address] [place] mL/min/1.73m2 eGFR >90 >=[address] mL/min/1.73m2 Specimen Blood Performing Organization Address [facility] Phone Number [address] [place] [address], [place] [address] VANCOMYCIN TROUGH (06/08/2019 6:24 PM CDT) Vancomycin Trough 10.4 10.0 - 20.0 ug/mL [place] [address] [facility] Specimen Blood Performing Organization Address [facility] Phone Number [address] [place] [address], [place] [address] SARS-COV-2 RNA, QUALITATIVE REAL-TIME RT-PCR (06/08/2019 1:17 PM CDT) Pathologist [facility] SARS CoV RNA, RT Not Detected Not Detected [facility] Specimen Respiratory Narrative Performed At This test was performed by polymerase chain reaction (PCR) [facility] on the [employer] MDX instrument. This assay is for in vitro diagnostic use under FDA Emergency Use Authorization only. Optimal performance of this test requires appropriate specimen collection, storage, and transport to the test site. Detection of SARS-CoV-2 RNA may be affected by sample collection methods, patient factors (eg, presence of symptoms), and/or stage of infection. False-negative results may arise from degradation of viral RNA during shipping/storage. Results should be interpreted by a trained professional in conjunction with the patient s history and clinical signs and symptoms, and epidemiological risk factors. Negative results do not preclude infection with the SARS-CoV-2 virus and should not be the sole basis of patient treatment/management or public health decision. Follow up testing should be performed according to the current CDC recommendations. Performing Organization Address City/State/Zipcode Phone Number [facility] [address] [place], [place] [phone] LAB ONLY-COMPLETE BLOOD COUNT WITH DIFFERENTIAL (06/08/2019 4:14 AM CDT) [facility] WBC 7.3 4.0 - 11.0 K/uL [address] RBC 3.16 (L) 4.40 - 5.[address] M/uL Hemoglobin 11.0 (L) 13.5 - 17.[address] g/dL Hematocrit 31.1 (L) 40.0 - 50.0 % [address] MCV 98.4 (H) 80.0 - 98.[address] MCH 34.8 (H) 25.5 - 34.[address] MCHC 35.4 31.5 - 36.[address] g/dL RDW-CV 17.9 (H) 11.5 - 15.5 % [address] RDW-SD 63.9 (H) 35.5 - 50.[address] Platelet Count 48 (L) 140 - 400 K/uL [address] MPV 12.8 (H) 8.5 - 12.[address] Seg Neut Absolute 6.2 1.8 - 8.0 K/uL [address] Lymphocytes Absolute 0.5 (L) 0.8 - 4.1 K/uL [address] Monocytes Absolute 0.5 0.0 - 1.0 K/uL [address] Eosinophils Absolute 0.0 0.0 - 0.7 K/uL [address] Basophil Absolute 0.0 0.0 - 0.2 K/uL [address] Immature Granulocyte 0.09 (H) 0.00 - 0.[address] Absolute K/uL Neutrophils Abs. 6,200 /uL [address] (Segs and Bands) Neutrophils Percent 85.4 % [address] Lymphocytes Percent 7.1 % [address] Monocytes Percent 6.2 % [address] Immature Granulocyte 1.2 % [address] Percent Eosinophils Percent 0.0 % [address] Basophil Percent 0.1 % [address] Nucleated RBC 0 /[address] Specimen Blood Performing Organization Address City/State/Zipcode Phone Number [address] [place] [address] COMPREHENSIVE METABOLIC PANEL (06/08/2019 4:14 AM CDT) [facility] Signature Glucose 96 70 - 100 mg/dL [address] BUN 20 6 - 22 mg/dL [address] Creatinine 0.62 (L) 0.80 - 1.[address] mg/dL BUN/Creatinine Ratio 32.3 (H) 10.0 - 25.[address] Sodium 130 (L) 135 - 145 meq/L [place] [address] [facility] Potassium 3.8 3.5 - 5.3 meq/L [address] Chloride 100 99 - 110 meq/L [place] [address] [facility] CO2 22 20 - 29 meq/L [address] Anion Gap with K 12 6 - 20 meq/L [facility] Calcium 7.5 (L) 8.5 - 10.[address] mg/dL Protein Total 4.6 (L) 6.0 - 8.2 g/dL [address] Albumin 1.7 (L) 3.5 - 5.0 g/dL [address] Alkaline Phosphatase 146 30 - 150 U/L [address] AST - SGOT 70 (H) 0 - 35 U/L [address] ALT - SGPT 50 0 - 55 U/L [address] Bilirubin Total 4.2 (H) 0.2 - 1.2 mg/dL [address] Corrected Calcium 9.3 8.5 - 10.[address] mg/dL Age [address] eGFR Non- >90 >=[address] [place] mL/min/1.73m2 eGFR >90 >=[address] mL/min/1.73m2 Specimen Blood Performing Organization Address [facility] Phone Number [address] [address] MAGNESIUM (06/08/2019 4:14 AM CDT) Magnesium 1.5 (L) 1.8 - 2.4 mg/dL [address] Specimen Blood Performing Organization Address [facility] Phone Number [address] [address] PROTIME/INR (06/08/2019 4:14 AM CDT) Protime 21.3 (H) 12.0 - 14.[address] INR 1.9 (L) 2.0 - 3.[address] Specimen Blood Narrative Performed At Normal INR reference range (patients not on oral [address] anticoagulants)0.9-1.1. INR Standard Intensity=(2.0 - 3.0) INR Higher Intensity=(2.5 - 3.5) Performing Organization Address [facility] Phone Number [address] [address] AMMONIA (06/08/2019 4:14 AM CDT) Pathologist [facility] Ammonia 45 10 - 45 uMol/L [address] Specimen Blood Performing Organization Address [facility] Phone Number [address] [place] [address], [place] [address] GRAM STAIN (06/07/2019 1:29 PM CDT) [facility] Gram Stain Many (>25/LPF) WBC's [facility] Gram Stain Many (>25/LPF) Squamous [facility] epithelial cells [facility] Gram Stain Not representative government relations of [facility] respiratory [facility] secretions. Please collect a new specimen. Specimen Respiratory Performing Organization Address [facility] Phone Number [address] [address] ASO TITER (06/07/2019 11:04 AM CDT) [facility] ASO Titer <50 0 - 200 IU/mL [facility] Specimen Blood Performing Organization Address [facility] Phone Number [address] [address] TROPONIN I (06/07/2019 11:04 AM CDT) [facility] Troponin I 0.025 0.000 - 0.028 ng/mL [address] Specimen Blood Performing Organization Address [facility] Phone Number [address] [place] [address] [place] [address] LAB ONLY-DIFFERENTIAL, BODY FLUID (06/07/2019 10:11 AM CDT) [facility] % Neutrophils BF 45 % [address] % Lymphocytes BF 17 % [address] % Macrophage/Monocyte BF 38 % [address] Specimen Fluid Performing Organization Address [facility] Phone Number [address] [place] [address], [place] [address] LAB ONLY-CELL COUNT, BODY FLUID (06/07/2019 10:11 AM CDT) [facility] Specimen Source Peritoneal/Ascit [address] es BF Turbid [address] Clarity/Appearance BF Nucleated Cells 287 /uL [address] Specimen Fluid Narrative Performed At The reference range and other method performance specifications [address] are unavailable for this body fluid. Comparison of this result with the concentration in the blood, serum, or plasma is recommended. Performing Organization Address [facility] Phone Number [address] [place] [address] CYTOLOGY-BODY FLUID/OTHER (06/07/2019 10:11 AM CDT) CASE REPORT Medical Cytology Report Case: [id number] [place] Authorizing Provider:Anam Murhpy DO Collected: 06/07/2019 1011 [facility] Ordering Location: [facility] 6CD Received: 06/07/2019 1131 [facility] Pathologist: Martín Ma MD Specimen:Peritoneal/Ascites, Ascites Fluid FINAL DIAGNOSIS A. PERITONEAL FLUID: [place] Electronically Satisfactory for evaluation. [facility] signed by Francesca, Negative for malignancy. MD Martín on - Reactive mesothelial cells and histiocytes present in a background of acute inflammation and blood. No evidence of malignancy in this one specimen, see comment. 06/09/2019 at 1:27 PM DIAGNOSIS COMMENT Immunohistochemical stain for Prasanth-EP4, performed with adequate control on cell block preparation, is negative supporting the above diagnosis. [facility] GROSS DESCRIPTION A. PERITONEAL/ASCITES: RECEIVED 70 MLS CLOUDY YELLOW FLUID. [facility] PREPARED 2 SLIDES USING CONCENTRATION TECHNIQUES AND CELL BLOCK. [facility] EMBEDDED IMAGES [facility] Clinical History of alcoholic [place] Information cirrhosis, ascites and [facility] squamous cell lung cancer Specimen Fluid Performing Organization Address [facility] Phone Number [facility] [address] [place] [address] [facility] [address] [place] [phone] ALBUMIN, BODY FLUID (06/07/2019 10:11 AM CDT) Albumin Body Fluid <0.4 g/dL [facility] Specimen Source Peritoneal/Ascit [facility] Specimen Fluid Narrative Performed At The reference range and other method performance [facility] specifications are unavailable for this body fluid.Comparison of this result with the concentration in the blood, serum, or plasma is recommended. Performing Organization Address [facility]/Zipcode Phone Number [facility] [address] [place] [address] PROTEIN, BODY FLUID (06/07/2019 10:11 AM CDT) Protein Body Fluid 0.8 g/dL [facility] Specimen Source Peritoneal/Ascit [facility] Specimen Fluid Narrative Performed At The reference range and other method performance [facility] specifications are unavailable for this body fluid.Comparison of this result with the concentration in the blood, serum, or plasma is recommended. Performing Organization Address [facility] Phone Number [facility] [address] [place] [address] EKG (06/07/2019 7:52 AM CDT) EKG WAVEFORM [facility] Normal sinus rhythm Low voltage QRS, consider pulmonary disease, pericardial effusion, or normal variant Cannot rule out Anteroseptal infarct , age undetermined Abnormal ECG When compared with ECG of 01-JUN-2019 12:43, Significant changes have occurred Ventricular Rate: 95 BPM Atrial Rate: 95 BPM P-R Interval: 186 ms QRS Duration: 80 ms Q-T Interval: 390 ms QTc Calculation(Bazett): 490 ms Calculated P Kent: 76 degrees Calculated R [place]: 33 degrees Calculated T [place]: 79 degrees Specimen Narrative Performed At Performing Organization Address [facility] Phone Number [facility] LAB ONLY-LACTIC ACID REPEAT (06/07/2019 6:10 AM CDT) Lactic Acid 1.1 0.5 - 2.2 mmol/L [address] Specimen Blood Performing Organization Address [facility] Phone Number [address] [place] [address] GGTP (06/07/2019 12:35 AM CDT) GGTP 76 (H) 11 - 50 U/L [address] Specimen Blood Performing Organization Address [facility] Number [address] [place] [address] LAB ONLY-COMPLETE BLOOD COUNT WITH DIFFERENTIAL (06/07/2019 12:35 AM CDT) WBC 11.6 (H) 4.0 - 11.0 [place] K/uL CLINIC RBC 3.47 (L) 4.40 - 5.80 [place] M/uL CLINIC Hemoglobin 12.1 (L) 13.5 - 17.5 [place] g/dL CLINIC Hematocrit 34.4 (L) 40.0 - 50.0 [place] % [facility] MCV 99.1 (H) 80.0 - 98.0 [place] fL [facility] MCH 34.9 (H) 25.5 - 34.0 [place] pg CLINIC MCHC 35.2 31.5 - 36.5 [place] g/dL CLINIC RDW-CV 18.3 (H) 11.5 - 15.5 [place] % [facility] RDW-SD 65.1 (H) 35.5 - 50.0 [place] tx CLINIC Platelet Count 60 (L)Comment: Smear 140 - 400 [place] review performed and K/uL CLINIC confirmed automated differential results. MPV 11.9 8.5 - 12.0 [place] ME [facility] Seg Neut Absolute 11.0 (H) 1.8 - 8.0 [place] K/uL CLINIC Lymphocytes 0.4 (L) 0.8 - 4.1 [place] Absolute K/uL CLINIC Monocytes Absolute 0.1 0.0 - 1.0 [place] K/uL CLINIC Eosinophils 0.0 0.0 - 0.7 [place] Absolute K/uL CLINIC Basophil Absolute 0.0 0.0 - 0.2 [place] K/uL [facility] Immature 0.12 (H) 0.00 - 0.06 [place] Granulocyte K/uL CLINIC Absolute Neutrophils Abs. 11,000 /uL [place] (Segs and Bands) CLINIC Neutrophils Percent 94.6 % [place] [facility] Lymphocytes Percent 3.2 % [facility] Monocytes Percent 1.1 % [place] [facility] Immature 1.0 % [place] Granulocyte Percent CLINIC Eosinophils Percent 0.0 % [place] [facility] Basophil Percent 0.1 % [facility] Nucleated RBC 0 /[address] Specimen Blood Performing Organization Address City/State/Zipcode Phone Number [address] [address] AMMONIA (06/07/2019 12:35 AM CDT) [place] 63 (H) 10 - 45 uMol/L [address] Specimen Blood Performing Organization Address [facility] Number [address] [address] PROTIME/INR (06/07/2019 12:35 AM CDT) Protime 20.8 (H) 12.0 - 14.[address] INR 1.8 (L) 2.0 - 3.[address] Specimen Blood Narrative Performed At Normal INR reference range (patients not on oral [address] anticoagulants)0.9-1.1. INR Standard Intensity=(2.0 - 3.0) INR Higher Intensity=(2.5 - 3.5) Performing Organization Address [facility] Number [address] [address] TROPONIN I (06/07/2019 12:35 AM CDT) Troponin I 0.038 (H) 0.000 - 0.028 ng/mL [address] Specimen Blood Performing Organization Address [facility] Number [address] [place] [address] C-REACTIVE PROTEIN QUANTITATIVE (06/07/2019 12:35 AM CDT) CRP 31.6 (H) 0.0 - 8.0 mg/L [address] Specimen Blood Performing Organization Address [facility] Phone Number [address] [place] [address] HEPATIC FUNCTION PANEL (06/07/2019 12:35 AM CDT) Alkaline Phosphatase 158 (H) 30 - 150 U/L [address] AST - SGOT 71 (H) 0 - 35 U/L [address] ALT - SGPT 55 0 - 55 U/L [address] Bilirubin Total 5.4 (H) 0.2 - 1.2 mg/dL [address] Bilirubin Indirect 2.9 (H) 0.0 - 0.8 mg/dL [address] Bilirubin Direct 2.5 (H) 0.0 - 0.4 mg/dL [address] Albumin 2.0 (L) 3.5 - 5.0 g/dL [address] Protein Total 5.3 (L) 6.0 - 8.2 g/dL [place] [address] [facility] Specimen Blood Performing Organization Address [facility] Phone Number [place] [address] [facility] [address] [place] [address], [place] [address] PHOSPHORUS (06/07/2019 12:35 AM CDT) Phosphorus 2.7 2.5 - 4.5 mg/dL [address] Specimen Blood Performing Organization Address [facility] Phone Number [address] [place] [address] MAGNESIUM (06/07/2019 12:35 AM CDT) Magnesium 1.4 (L) 1.8 - 2.4 mg/dL [place] [address] [facility] Specimen Blood Performing Organization Address [facility] Phone Number [place] [address] [facility] [address] [place] [address], [place] [address] BASIC METABOLIC PANEL (06/07/2019 12:35 AM CDT) Glucose 93 70 - 100 mg/dL [address] BUN 23 (H) 6 - 22 mg/dL [place] [address] [facility] Creatinine 0.63 (L) 0.80 - 1.30 [place] [address] [facility] mg/dL BUN/Creatinine Ratio 36.5 (H) 10.0 - 25.0 [place] [address] [facility] Sodium 128 (L) 135 - 145 meq/L [address] Potassium 4.4 3.5 - 5.3 meq/L [address] Chloride 94 (L) 99 - 110 meq/L [place] [address] [facility] CO2 27 20 - 29 meq/L [address] Anion Gap with K 11 6 - 20 meq/L [address] Calcium 7.8 (L) 8.5 - 10.5 [place] [address] [facility] mg/dL Age [address] eGFR Non- >90 >=[address] [place] mL/min/1.73m2 eGFR >90 >=[address] mL/min/1.73m2 Specimen Blood Performing Organization Address City/State/Zipcode Phone Number [address] [place] [address] LACTIC ACID REFLEX TO REPEAT (06/07/2019 12:35 AM CDT) Lactic Acid 2.1 0.5 - 2.2 mmol/L [address] Specimen Blood Performing Organization Address City[facility] Phone Number [address] [place] [address] documented in this encounter Visit Diagnoses Diagnosis Cellulitis - Primary Cellulitis and abscess of unspecified site 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) Cellulitis of abdominal wall Cellulitis and abscess of trunk Thrombocytopenia (HCC) Thrombocytopenia, unspecified Ascites Other ascites Troponin level elevated Other abnormal blood chemistry Sepsis (HCC) Alcoholic cirrhosis of liver with ascites (HCC) Alcoholic cirrhosis of liver Cancer of upper lobe of left lung (HCC) Alcoholism (HCC) Other and unspecified alcohol dependence, unspecified drinking behavior documented in this encounter Discharge Diagnoses Not on filedocumented in this encounter Administered Medications Medication Order MAR Action Action Date Dose Rate Site acetaminophen (TYLENOL) tablet 650 mg 650 mg, Oral, Every four hours prn, Starting Thu06/07/19 at 0002, Until Discontinued, mild pain, fever > (indicate temp), 101, If inadequate response in 60 minutes, may proceed to next choice option or if no other options, contact provider., albuterol-ipratropium (DUO-NEB) 2.5-0.5 mg/3 mL inhalation solution 3 mL 3 mL, Nebulization, Every four hours prn, Starting Thu06/09/19 at 0109, Until Discontinued, bronchospasm, shortness of breath, wheezing, 3 mL bisacodyl (DULCOLAX) suppository 10 mg 10 mg, Rectal, One time a day prn, Starting Thu06/07/19 at 0002, Until Discontinued, constipation, Use SECOND for constipation. If patient cannot take oral medications, use first for constipation., carboxymethylcellulose 1 % ophthalmic gel Given 06/09/2019 8:38 AM CDT 1 drop (preservative free) 1 drop 1 drop, Both eyes, Two times a day, First dose on Thu06/07/19 at 1425, Until Discontinued, 1 mL Given 06/08/2019 8:18 PM CDT 1 drop Given 06/08/2019 8:40 AM CDT 1 drop docusate sodium (THEREVAC-SB MINI;ENEMEEZ MINI) 283 MG enema 1 enema 1 enema, Rectal, One time a day prn, Starting Thu06/07/19 at 0002, Until Discontinued, constipation, Use THIRD for constipation - if no BM 8 hours after ducolax suppository. If patient cannot take oral medications, use second for constipation., folic acid tablet 1 mg Given 06/09/2019 8:38 AM CDT 1 mg 1 mg, Oral, DAILY, First dose on Thu06/08/19 at 0900, Until Discontinued Given 06/08/2019 8:40 AM CDT 1 mg lactated ringers IV solution (bolus) SOLN 500 mL 500 mL, IV, at 999 mL/hr, Every twenty minutes prn, 2 doses, Starting Thu at 2349, Until Discontinued, other (Specify), see admin instructions, 500 mL, For systolic blood pressure (SBP) less than 90 mmHg or MAP less than 65 mmHg. May administer up to 2 doses, then notify provider., lactulose oral solution (10 gm/15 mL) 45 mL Given 06/09/2019 8:38 AM CDT 45 mL 45 mL, Oral, Three times a day, First dose on Thu06/07/19 at 1500, Until Discontinued, 45 mL Given 06/08/2019 8:18 PM CDT 45 mL Given 06/08/2019 5:32 PM CDT 45 mL melatonin tablet 3 mg 3 mg, Oral, Bedtime prn, Starting Thu06/07/19 at 0002, Until Discontinued, other (Specify), insomnia, If inadequate response in 60 minutes, may proceed to next choice option or, if no other options, contact provider., ondansetron (ZOFRAN ODT) dispersible tablet 4 Given 06/09/2019 4:49 AM CDT 4 mg mg 4 mg, Oral, Every four hours prn, Starting Thu06/07/19 at 0002, Until Discontinued, nausea, vomiting, Use FIRST. If ineffective after 30 minutes use ondansetron IV, ondansetron (ZOFRAN) injection solution 4 mg 4 mg, IV, Every four hours prn, Starting Thu06/07/19 at 0002, Until Discontinued, nausea, vomiting, 2 mL, Use SECOND. If ineffective after 30 minutes and ondansetron ODT used, call physician for alternative. If preference is to further dilute for IV administration: First draw up patient-specific dose, then dilute to 10 mL with 0.9% sodium chloride., oxyCODONE (OXY-IR) tablet 5 mg Given 06/09/2019 2:21 AM CDT 5 mg 5 mg, Oral, Every six hours prn, Starting Thu06/08/19 at 1519, Until Discontinued, severe pain polyethylene glycol (MIRALAX) packet 1 packet 1 packet, Oral, One time a day prn, Starting Thu06/08/19 at 0810, Until Discontinued, constipation, give if no bowel movement in 24 hours, Dissolve in 8 ounces of water, juice, soda, coffee, tea., senna-docusate sodium (SENOKOT-S;PERICOLACE) tablet 2 tablet 2 tablet, Oral, Two times a day prn, Starting Thu06/07/19 at 0002, Until Discontinued, constipation, Use FIRST for constipation unless patient cannot take oral medications., sodium chloride 0.9% prefilled 10 mL syringe Given 06/09/2019 11:21 AM CDT 20 mL (Materials Management Item) 20 mL 20 mL, IV, Daily, First dose on Thu06/09/19 at 0900, Until Discontinued, 20 mL, Flush PORT with 20 mL sodium chloride 0.9%, sodium chloride 0.9% prefilled 10 mL syringe (Materials Management Item) 20 mL 20 mL, IV, As often as necessary prn, Starting Thu06/08/19 at 1108, Until Discontinued, other (Specify), [place], 20 mL, Flush PORT with 20 mL sodium chloride 0.9%, spironolactone (ALDACTONE) tablet 100 mg 100 mg, Oral, Daily, First dose on Thu06/10/19 at 0900, Until Discontinued, Hold for SBP less than 90, traMADol (ULTRAM) tablet 50 mg Given 06/08/2019 10:28 PM CDT 50 mg 50 mg, Oral, Every six hours prn, Starting Thu06/07/19 at 0142, Until Discontinued, moderate pain, Recommended maximum daily dose of [id number] mg. Recommended maximum daily dose in patients 75 years or [id number]=163 mg., Given 06/07/2019 7:50 PM CDT 50 mg vancomycin (VANCOCIN) 1,250 mg in sodium Given 06/09/2019 6:50 AM CDT 1, 250 mg chloride 0.9% 250 mL (Locked) 1,250 mg, IV, Every twelve hours, First dose on Thu06/09/19 at 0730, Until Discontinued, 250 mL, Vanco Dose 1250 mg- Total Volume: 293 mL @ 195 mL/hr x 1.5 hours, vitamin B complex capsule 1 capsule Given 06/09/2019 11:21 AM CDT 1 capsule 1 capsule, Oral, DAILY, First dose on Thu06/07/19 at 1425, Until Discontinued Given 06/08/2019 9:26 AM CDT 1 capsule Given 06/07/2019 3:26 PM CDT 1 capsule Medication Order MAR Action Action Date Dose Rate Site albumin (human) 25 % IV Given 06/09/2019 1:00 PM CDT 25 g 400 mL/hr solution 25 g 25 g, IV, at 400 mL/hr, Now, 1 dose, Thu06/09/19 at 1230, 100 mL, If using CENTRAL line: administer at 100-400 mL/hr o Run as a secondary line/piggy back. o Select "albumin" from your avoxpRenewData library. o Run on a dedicated pump with normal saline as primary. o Flush line after infusion with normal saline 0.9%, cefepime (MAXIPIME) 2000 mg/20 mL in Given 06/08/2019 8:40 AM CDT 2,000 mg sterile water IV syringe 2,000 mg, IV, Every eight hours, First dose on Thu06/07/19 at 0030, Until Discontinued, 20 mL, Administer over 5 minutes., Given 06/08/2019 12:19 AM CDT 2,000 mg Given 06/07/2019 3:30 PM CDT 2,000 mg magnesium sulfate 2 gm/50 mL IV solution 2 g Given 06/09/2019 8:39 AM CDT 2 g 2 g, IV, Now, 1 dose, Thu06/09/19 at 0720, 50 mL magnesium sulfate IV replacement Given 06/07/2019 2:55 AM CDT 4 g 25 mL/ hr (premix) 4 g 4 g, IV, at 25 mL/hr, One time, 1 dose, Thu06/07/19 at 0235, 100 mL magnesium sulfate IV replacement Given 06/08/2019 10:06 AM CDT 4 g 25 mL/ hr (premix) 4 g 4 g, IV, at 25 mL/hr, Now, 1 dose, Thu06/08/19 at 0800, 100 mL metroNIDAZOLE (FLAGYL) IV piggyback in Given 06/08/2019 8:59 AM CDT 500 mg sodium chloride 0.79% (premix) 500 mg 500 mg, IV, Every eight hours, First dose on Thu06/07/19 at 0030, Until Discontinued, 100 mL Given 06/08/2019 12:25 AM CDT 500 mg Given 06/07/2019 3:41 PM CDT 500 mg polyethylene glycol (MIRALAX) packet 1 Given 06/07/2019 11:21 AM CDT 1 packet packet 1 packet, Oral, Daily, First dose on Thu06/07/19 at 0900, Until Discontinued, Dissolve in 8 ounces of water, juice, soda, coffee, tea., potassium & sodium phosphates (PHOS-NaK) Given 06/09/2019 12:56 PM CDT 2 packets 280-160-250 MG packet 2 packet 2 packet, Oral, Now, 1 dose, Thu06/09/19 at 1145, Contents of packet should be dissolved in 75 ml water. Stir well and take promptly., senna-docusate sodium Given 06/07/2019 11:21 AM CDT 1 tablet (SENOKOT-S;PERICOLACE) tablet 1 tablet 1 tablet, Oral, Two times a day, First dose on Thu06/07/19 at 0900, Until Discontinued sodium chloride 0.9% IV solution New Bag 06/08/2019 8:40 AM CDT 125 mL/hr IV, at 125 mL/hr, Continuous, Starting Thu06/07/19 at 0105, Until Thu06/08/19 at 0943, 1,000 mL New Bag 06/08/2019 1:38 AM CDT 125 mL/hr New Bag 06/07/2019 3:55 PM CDT 125 mL/hr spironolactone (ALDACTONE) tablet 50 mg Given 06/09/2019 8:38 AM CDT 50 mg 50 mg, Oral, Daily, First dose on Thu06/08/19 at 0945, Until Discontinued, Hold for SBP less than 90, Given 06/08/2019 10:08 AM CDT 50 mg spironolactone (ALDACTONE) tablet 50 mg Given 06/09/2019 12:56 PM CDT 50 mg 50 mg, Oral, Now, 1 dose, [place] 06/09/19 at 1005, Hold for SBP less than 90, vancomycin (VANCOCIN) 1,500 mg in sodium Given 06/08/2019 7:39 PM CDT 1, 500 mg chloride 0.9% 250 mL (Locked) 1,500 mg, IV, Every eighteen hours, First dose on Thu06/07/19 at 0630, Until Discontinued, 250 mL, Vanco Dose 1500 mg- Total Volume: 295 mL @ 148 mL/hr x 2 hours, Given 06/08/2019 1:34 AM CDT 1,500 mg Given 06/07/2019 6:12 AM CDT 1,500 mg documented in this encounter
[2019-06-15] MEDS: Carboxymethylcellulose 0.5%/Glycerin 0.9% Ophth Soln 15 ML Bottle EYEBOTH SCH ×2 (08:29→20:20)
[2019-06-15] MEDS: Lactulose Soln 10 GM/15 ML 30 ML UD Cup PO SCH ×3 (08:29→20:20)
[2019-06-15] MEDS: Vitamin B Complex with Vitamin C Tab PO SCH (08:29)
[2019-06-15] MEDS: Folic Acid 1 MG Tab PO SCH (08:29)
[2019-06-15] MEDS: Spironolactone 50 MG Tab PO SCH (08:29)
[2019-06-15] MEDS: Naproxen 500 MG Tab PO SCH ×2 (08:30→20:19)
[2019-06-15] MEDS: Vancomycin/Dextrose 5%-Water 200 ML IV SCH ×2 (08:35→19:50)
[2019-06-15] MEDS: oxyCODONE ER 10 MG TAB.ER PO SCH ×2 (08:35→20:19)
--- NOTE | 2019-06-15 10:51 | US ---
INDICATION: Needle localization for paracentesis. LIMITED ABDOMEN ULTRASOUND FOR PARACENTESIS: Ultrasonic guidance was utilized for paracentesis. Paracentesis was obtained from the left lower quadrant. [facility]
--- NOTE | 2019-06-15 10:58 | OR ---
DATE OF OPERATION: 06/15/2019 SURGEON: Quentin Daly MD PREOPERATIVE DIAGNOSIS: Ascites. POSTOPERATIVE DIAGNOSIS: Ascites. OPERATION PERFORMED: Paracentesis. INDICATIONS: This 73-year-old male has a known history of metastatic malignancy and cirrhosis. He has recurring ascites which causes significant symptoms when there is a large amount of fluid. The patient's last paracentesis was 3 days ago. He again has developed abdominal distention and paracentesis is requested. On examination, the patient's abdomen is rounded and distended consistent with ascites. There is some generalized tenderness. Previous paracentesis sites are clean, although there has been some fluid leaking from the site with the increased pressure from redevelopment of the ascites. The procedure is again reviewed with the patient. He has good understanding of the procedure from previous episodes and he agrees to proceed. DESCRIPTION OF PROCEDURE: Ultrasound was used to identify a pocket of fluid. This being most clear in the right lower quadrant. The site was marked, prepped and draped, and the abdominal wall in this area anesthetized with Xylocaine. A small incision was made and the paracentesis catheter over a Veress needle was advanced into the peritoneal cavity. The needle was removed and the catheter was attached to wall suction. Approximately 4.3 L of cloudy peritoneal fluid was aspirated. Once the fluid was no longer flowing, the catheter was removed. The patient tolerated the procedure well, and at the close of the procedure, was comfortable. His abdomen showed significant decompression from before the procedure. ESTIMATED BLOOD LOSS: 3 mL. COMPLICATIONS: None. /[id number] BISHNU/ROSY
[2019-06-15] MEDS: Sodium Chloride 0.9% 10 ML Syringe FLUSH PRN ×2 (19:50→20:50)
[2019-06-15] MEDS: Cyclobenzaprine 10 MG Tab PO SCH (20:20)
[2019-06-16] MEDS: traMADol 50 MG Tab PO PRN (05:58)
[2019-06-16] MEDS: Vancomycin/Dextrose 5%-Water 200 ML IV SCH ×2 (09:37→20:18)
[2019-06-16] MEDS: Lactulose Soln 10 GM/15 ML 30 ML UD Cup PO SCH ×3 (09:37→20:26)
[2019-06-16] MEDS: Carboxymethylcellulose 0.5%/Glycerin 0.9% Ophth Soln 15 ML Bottle EYEBOTH SCH ×2 (09:38→20:26)
[2019-06-16] MEDS: Furosemide 40 MG Tab PO SCH (09:38)
[2019-06-16] MEDS: Vitamin B Complex with Vitamin C Tab PO SCH (09:38)
[2019-06-16] MEDS: Folic Acid 1 MG Tab PO SCH (09:38)
[2019-06-16] MEDS: Spironolactone 50 MG Tab PO SCH (09:38)
[2019-06-16] MEDS: Naproxen 500 MG Tab PO SCH ×2 (09:38→20:26)
[2019-06-16] MEDS: oxyCODONE ER 10 MG TAB.ER PO SCH ×2 (09:40→20:26)
[2019-06-16] MEDS: Sodium Chloride 0.9% 10 ML Syringe FLUSH PRN ×2 (09:41→21:24)
[2019-06-16] MEDS: Cyclobenzaprine 10 MG Tab PO SCH (20:26)
[2019-06-17] MEDS: oxyCODONE 5 MG Tab PO PRN (05:17)
[2019-06-17] MEDS: Lactulose Soln 10 GM/15 ML 30 ML UD Cup PO SCH ×3 (08:20→20:47)
[2019-06-17] MEDS: Spironolactone 50 MG Tab PO SCH (08:20)
[2019-06-17] MEDS: Vitamin B Complex with Vitamin C Tab PO SCH (08:20)
[2019-06-17] MEDS: Carboxymethylcellulose 0.5%/Glycerin 0.9% Ophth Soln 15 ML Bottle EYEBOTH SCH ×2 (08:20→20:47)
[2019-06-17] MEDS: Naproxen 500 MG Tab PO SCH ×2 (08:20→20:46)
[2019-06-17] MEDS: oxyCODONE ER 10 MG TAB.ER PO SCH ×2 (08:20→20:46)
[2019-06-17] MEDS: Folic Acid 1 MG Tab PO SCH (08:20)
[2019-06-17] MEDS: Sodium Chloride 0.9% 10 ML Syringe FLUSH PRN ×5 (08:22→21:50)
[2019-06-17] MEDS: Vancomycin/Dextrose 5%-Water 200 ML IV SCH ×2 (08:48→20:38)
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
[2019-06-17] MEDS: Cyclobenzaprine 10 MG Tab PO SCH (20:46)
[2019-06-18] MEDS: Spironolactone 50 MG Tab PO SCH (08:32)
[2019-06-18] MEDS: Naproxen 500 MG Tab PO SCH ×2 (08:33→21:11)
[2019-06-18] MEDS: Furosemide 40 MG Tab PO SCH (08:33)
[2019-06-18] MEDS: Lactulose Soln 10 GM/15 ML 30 ML UD Cup PO SCH ×3 (08:33→21:10)
[2019-06-18] MEDS: Carboxymethylcellulose 0.5%/Glycerin 0.9% Ophth Soln 15 ML Bottle EYEBOTH SCH ×2 (08:33→21:12)
[2019-06-18] MEDS: Vitamin B Complex with Vitamin C Tab PO SCH (08:33)
[2019-06-18] MEDS: Folic Acid 1 MG Tab PO SCH (08:33)
[2019-06-18] MEDS: oxyCODONE ER 10 MG TAB.ER PO SCH ×2 (08:35→21:11)
[2019-06-18] MEDS: Alum Hydroxide/Mag Hydroxide 30 ML, Lidocaine 2% 30 ML, diphenhydrAMINE 75 MG PO SCH ×6 (16:13→21:13)
[2019-06-18] MEDS: Vancomycin/Dextrose 5%-Water 200 ML IV SCH (21:09)
[2019-06-18] MEDS: Cyclobenzaprine 10 MG Tab PO SCH (21:11)
[2019-06-18] MEDS: Sodium Chloride 0.9% 10 ML Syringe FLUSH PRN (22:19)
[2019-06-19] MEDS: Lactulose Soln 10 GM/15 ML 30 ML UD Cup PO SCH ×3 (08:42→21:08)
[2019-06-19] MEDS: oxyCODONE ER 10 MG TAB.ER PO SCH ×2 (08:43→21:07)
[2019-06-19] MEDS: Carboxymethylcellulose 0.5%/Glycerin 0.9% Ophth Soln 15 ML Bottle EYEBOTH SCH ×2 (08:43→21:09)
[2019-06-19] MEDS: Folic Acid 1 MG Tab PO SCH (08:43)
[2019-06-19] MEDS: Vitamin B Complex with Vitamin C Tab PO SCH (08:43)
[2019-06-19] MEDS: Spironolactone 50 MG Tab PO SCH (08:43)
[2019-06-19] MEDS: Naproxen 500 MG Tab PO SCH ×2 (08:43→21:09)
[2019-06-19] MEDS: Alum Hydroxide/Mag Hydroxide 30 ML, Lidocaine 2% 30 ML, diphenhydrAMINE 75 MG PO SCH ×12 (08:44→21:09)
[2019-06-19] MEDS: oxyCODONE 5 MG Tab PO PRN (11:35)
[2019-06-19] MEDS: Nystatin Crm 15 GM Tube TOP SCH ×2 (13:46→21:08)
[2019-06-19] MEDS: Sodium Chloride 0.9% 10 ML Syringe FLUSH PRN ×3 (19:09→22:08)
[2019-06-19] MEDS: Vancomycin/Dextrose 5%-Water 200 ML IV SCH (21:05)
[2019-06-19] MEDS: Cyclobenzaprine 10 MG Tab PO SCH (21:07)
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
[2019-06-20] MEDS: Lactulose Soln 10 GM/15 ML 30 ML UD Cup PO SCH ×3 (09:24→20:15)
[2019-06-20] MEDS: Celecoxib 200 MG Cap PO SCH (09:24)
[2019-06-20] MEDS: Spironolactone 50 MG Tab PO SCH (09:24)
[2019-06-20] MEDS: Vitamin B Complex with Vitamin C Tab PO SCH (09:25)
[2019-06-20] MEDS: Folic Acid 1 MG Tab PO SCH (09:25)
[2019-06-20] MEDS: Furosemide 40 MG Tab PO SCH (09:25)
[2019-06-20] MEDS: Nystatin Crm 15 GM Tube TOP SCH ×2 (09:25→13:31)
[2019-06-20] MEDS: Alum Hydroxide/Mag Hydroxide 30 ML, Lidocaine 2% 30 ML, diphenhydrAMINE 75 MG PO SCH ×12 (09:26→20:16)
[2019-06-20] MEDS: Carboxymethylcellulose 0.5%/Glycerin 0.9% Ophth Soln 15 ML Bottle EYEBOTH SCH ×2 (09:26→20:17)
[2019-06-20] MEDS: oxyCODONE ER 10 MG TAB.ER PO SCH ×2 (09:29→20:19)
[2019-06-20] MEDS: Nystatin Topical Powder 15 GM Bottle TOP SCH (20:17)
[2019-06-20] MEDS: Cyclobenzaprine 10 MG Tab PO SCH (20:18)
[2019-06-20] MEDS: Sodium Chloride 0.9% 10 ML Syringe FLUSH PRN ×2 (20:28→21:34)
[2019-06-20] MEDS: Vancomycin/Dextrose 5%-Water 200 ML IV SCH (20:29)
[2019-06-21] MEDS: Sodium Chloride 0.9% 10 ML Syringe FLUSH PRN ×2 (06:14→06:15)
[2019-06-21] MEDS: Spironolactone 50 MG Tab PO SCH (08:17)
[2019-06-21] MEDS: Celecoxib 200 MG Cap PO SCH (08:18)
[2019-06-21] MEDS: oxyCODONE ER 10 MG TAB.ER PO SCH ×2 (08:18→20:00)
[2019-06-21] MEDS: Lactulose Soln 10 GM/15 ML 30 ML UD Cup PO SCH ×3 (08:18→20:01)
[2019-06-21] MEDS: Nystatin Topical Powder 15 GM Bottle TOP SCH ×3 (08:18→20:01)
[2019-06-21] MEDS: Folic Acid 1 MG Tab PO SCH (08:18)
[2019-06-21] MEDS: Vitamin B Complex with Vitamin C Tab PO SCH (08:19)
[2019-06-21] MEDS: Carboxymethylcellulose 0.5%/Glycerin 0.9% Ophth Soln 15 ML Bottle EYEBOTH SCH ×2 (08:19→20:02)
[2019-06-21] MEDS: Alum Hydroxide/Mag Hydroxide 30 ML, Lidocaine 2% 30 ML, diphenhydrAMINE 75 MG PO SCH ×12 (08:20→20:11)
[2019-06-21] MEDS: Cyclobenzaprine 10 MG Tab PO SCH (20:01)
[2019-06-21] MEDS: oxyCODONE 5 MG Tab PO PRN (22:30)
[2019-06-21] MEDS: traMADol 50 MG Tab PO PRN (23:37)
[2019-06-22] MEDS ORDERED: Lactated Ringers 1,000 ML IV SCH (08:45)
[2019-06-22] MEDS: Nystatin Topical Powder 15 GM Bottle TOP SCH ×3 (09:00→20:09)
[2019-06-22] MEDS: oxyCODONE ER 10 MG TAB.ER PO SCH ×2 (09:00→20:09)
--- NOTE | 2019-06-22 11:25 | PCM.OPNOTE ---
- General Post-Op/Procedure Note Date of Surgery/Procedure: 06/22/19 Operative Procedure(s): Pleurx cath placement Findings: 4 liters of fluid drained Pre Op Diagnosis: alcoholic cirrhosis of the liver with ascites Post-Op Diagnosis: Same Anesthesia Technique: Local (10 ml 1 % lido with epi), MAC Primary Surgeon: Aquiles Riggins Anesthesia Provider: Kya Good EBL in mLs: 2 Drain/Tube Comments:: Pleurx Complications: None Condition: Poor Free Text/Narrative:: Intake & Output 06/21/19 06/22/19 06/22/19 22:59 06:59 14:59 Intake Total 340 Output Total 100 200 Balance 240 -200 see dictation
[2019-06-22] MEDS: Spironolactone 50 MG Tab PO SCH (11:33)
[2019-06-22] MEDS: Celecoxib 200 MG Cap PO SCH (11:33)
[2019-06-22] MEDS: Lactulose Soln 10 GM/15 ML 30 ML UD Cup PO SCH ×3 (11:34→20:10)
[2019-06-22] MEDS: Folic Acid 1 MG Tab PO SCH (11:34)
[2019-06-22] MEDS: Furosemide 40 MG Tab PO SCH (11:34)
[2019-06-22] MEDS: Carboxymethylcellulose 0.5%/Glycerin 0.9% Ophth Soln 15 ML Bottle EYEBOTH SCH ×2 (11:35→20:10)
[2019-06-22] MEDS: Vitamin B Complex with Vitamin C Tab PO SCH (11:35)
[2019-06-22] MEDS: Alum Hydroxide/Mag Hydroxide 30 ML, Lidocaine 2% 30 ML, diphenhydrAMINE 75 MG PO SCH ×12 (11:36→20:09)
[2019-06-22] MEDS ORDERED: Propofol 200 MG/20 ML SDV IV ONE (13:19)
[2019-06-22] MEDS: Sodium Chloride 0.9% 10 ML Syringe FLUSH PRN (15:29)
[2019-06-22] MEDS: Cyclobenzaprine 10 MG Tab PO SCH (20:09)
[2019-06-23] MEDS: Celecoxib 200 MG Cap PO SCH (08:45)
[2019-06-23] MEDS: Lactulose Soln 10 GM/15 ML 30 ML UD Cup PO SCH (08:45)
[2019-06-23] MEDS: Spironolactone 50 MG Tab PO SCH (08:45)
[2019-06-23] MEDS: Carboxymethylcellulose 0.5%/Glycerin 0.9% Ophth Soln 15 ML Bottle EYEBOTH SCH (08:46)
[2019-06-23] MEDS: oxyCODONE ER 10 MG TAB.ER PO SCH (08:46)
[2019-06-23] MEDS: Nystatin Topical Powder 15 GM Bottle TOP SCH (08:46)
[2019-06-23] MEDS: Folic Acid 1 MG Tab PO SCH (08:46)
[2019-06-23] MEDS: Alum Hydroxide/Mag Hydroxide 30 ML, Lidocaine 2% 30 ML, diphenhydrAMINE 75 MG PO SCH ×6 (08:47→12:47)
[2019-06-23] MEDS: Vitamin B Complex with Vitamin C Tab PO SCH (08:47)
--- NOTE | 2019-06-23 11:30 | OR ---
DATE OF OPERATION: 06/22/2019 SURGEON: Aquiles Riggins MD PROCEDURE PERFORMED: PleurX catheter placement. PREOPERATIVE DIAGNOSIS: Ascites secondary to alcoholic cirrhosis. POSTOPERATIVE DIAGNOSIS: Ascites secondary to alcoholic cirrhosis. INDICATIONS FOR PROCEDURE: This is a 73-year-old white male with multiple medical problems including end-stage liver disease secondary to cirrhosis of the liver from alcohol, as well as lung cancer. He has had problems with recurrent ascites in his abdomen and has required multiple drainage procedures. He will be entering hospice as an outpatient. A PleurX catheter was requested to aid in his care as he enters the end stage of life. INTRAOPERATIVE FINDINGS: The site of maximal fluid collection was identified preoperatively using ultrasound in the preop area. This was in the left lower quadrant. A total of approximately 4 L of ascitic fluid was aspirated, and the PleurX kit, lot number was [id number]. A total of 10 mL of 1% lidocaine was used for local. DESCRIPTION OF OPERATION: After an excellent IV sedation was administered, the area that was previously marked in the preop area was prepped and draped in the usual sterile manner. We infiltrated 2 spots, which were roughly about 5 cm apart, for the exit point of the PleurX catheter, as well as the site of introduction. Two small incisions were made with a #15 scalpel blade. Using a Seldinger technique, the intraoperative cavity was accessed. A Glidewire was inserted, and the access needle was removed. The catheter was then tunneled from the exit point to this point and kept out of the field. The tear-away sheath catheter and dilator were then inserted into the patient's abdominal cavity with milky fluid being obtained. The dilator was removed, and the catheter was then passed down without difficulty down the tear-away sheath catheter, which was then removed. After assuring that the sleeve was approximately 1 cm from the edge of the skin, the catheter was hooked up to suction drainage, and the skin of the insertion site was then closed with interrupted 4-0 Vicryl. Dermabond was placed over the skin as well as Steri- Strips. A 3-0 black silk was used to sew the end of the catheter to the skin to prevent avulsion, until the body grew into the sleeve itself. After completing our aspiration to 4 L, the end cap was placed. The wound was dressed. The patient was taken to recovery room in good condition. /[id number] /ROSY
--- NOTE | 2019-06-23 11:33 | PCM.DCSUM1 ---
Discharge Summary - Hospital Course HPI Initial Comments: This is a 73-year-old male patient is formally from the [facility]. He was seen here on 06/06/19 transferred to [place] with cellulitis of the abdomen and sepsis. He has a history of alcohol cirrhosis and lung cancer. He had a couple amniocentesis put on vancomycin and sent back here for swing bed. Communicated through the language line. He says he has a little back pain and he is weak. He has chest pain from his lung cancer that has not changed. He denies shortness of breath, fevers, chills, cough. Stools are little bit hard. Diagnosis: Stroke: No - Discharge Data Discharge Date: 06/23/19 (Hospice care at home) Discharge Disposition: DC/Tfer to Hospice - Home 50 Condition: Stable - Referral to Home Health Date of Face to Face Encounter: 06/23/19 Reason for Homebound Status: end of life Primary Care Physician: Geovani Limon MD Skilled Need: Hospice nursing, PleurX catheter in place, drain every other day. - Discharge Diagnosis/Problem(s) (1) Alcoholism SNOMED Code(s): 6023905 ICD Code: F10.20 - ALCOHOL DEPENDENCE, UNCOMPLICATED Status: Chronic Current Visit: Yes (2) Chronic liver disease SNOMED Code(s): 696808057 ICD Code: K76.9 - LIVER DISEASE, UNSPECIFIED Status: Chronic Current Visit: Yes (3) Abdominal wall cellulitis SNOMED Code(s): 63628035 ICD Code: L03.311 - CELLULITIS OF ABDOMINAL WALL Status: Resolved Current Visit: No (4) Ascites SNOMED Code(s): 036528261 ICD Code: R18.8 - OTHER ASCITES Status: Acute Current Visit: No Qualifiers: Ascites type: due to alcoholic cirrhosis (5) Thrombocytopenia SNOMED Code(s): 301516839 ICD Code: D69.6 - THROMBOCYTOPENIA, UNSPECIFIED Status: Chronic Current Visit: No (6) Legal blindness SNOMED Code(s): 14220884 ICD Code: H54.8 - LEGAL BLINDNESS, DEFINED IN [place] Status: Chronic Current Visit: No Problem Details: left eye secondary to trauma (7) Lung cancer SNOMED Code(s): 708957880 ICD Code: C34.90 - MALIGNANT NEOPLASM OF UNSP PART OF UNSP BRONCHUS OR LUNG Status: Chronic Current Visit: Yes - Patient Summary/Data Operative Procedure(s) Performed: Pleurx cath placement Consults: Consultations 06/09/19 15:51 OT Evaluation and Treatment [CONS] Routine Please Evaluate and Treat. OT Reason for Consult: ADL's This query below is only for informational purposes and is not editable. PT Evaluation and Treatment [CONS] Routine Please Evaluate and Treat. PT Reason for Consult: Ambulation This query below is only for informational purposes and is not editable. 06/20/19 07:32 Consult to Physician [CONS] Routine Consulting Provider: Aquiles Riggins Call Completed to Consulting Physician: Yes Reason for Consult: paracentesis, pleurx catheter placement Date Notified: 06/20/19 Time Notified: 07:33 Hospital Course: Judith was admitted for vancomycin infusion for abdominal wall cellulitis, he completed his course on ThursdayJune 19. His platelets were low on admission and repeat labs showed 17, his naproxen was discontinued and switched to Celebrex. He had 2 paracentesis on June 11 & , over 4 liters removed each time. Had care conference on Thursday with and son, and they want to have him at home with hospice, they understand that he is very weak that they would need help getting him up their stairs to their apartment at discharge. Hospice will be moving all the equipment in prior to discharge. Patient developed candidal rash under scrotum and in groin, painful with Nystatin cream but improved with Nystatin powder. Consulted Dr Riggins for Pleurx catheter placement for comfort measures so hospice can manage since he would not be able to come to clinic for paracentesis due to his weakness and declining health. Pleurx catheter placed on ThuJune 21, 4 L removed. Also had mouth irritation, started Magic mouthwash, which improved his symptoms and eating. Hospice to initiate their orders once he is at home. - Patient Instructions Diet: Usual Diet as Tolerated Other/Special Instructions: Discharge with hospice care - Discharge Plan *PRESCRIPTION DRUG MONITORING PROGRAM REVIEWED*: Yes *COPY OF PRESCRIPTION DRUG MONITORING REPORT IN PATIENT SHARIFA: Not Applicable Prescriptions/Med Rec: Celecoxib [CeleBREX] 200 mg PO DAILY #7 cap Nystatin [Nystop] 0 gm TOP TID 7 Days #1 bottle oxyCODONE ER [OxyCONTIN] 10 mg PO BID #10 tab.er Home Medications: Home Meds Tacrolimus [Protopic 0.1% Oint] 1 applic TOP BID 04/26/15 [History] Carboxymethylcellulos/Glycerin [Refresh Optive] 1 drop EYEBOTH BID 06/09/19 [ History] Cyclobenzaprine [Flexeril] 10 mg PO BEDTIME 06/09/19 [History] Folic Acid 1 mg PO DAILY 06/09/19 [History] Furosemide [Lasix] 40 mg PO Q48H 06/09/19 [History] Hydrocortisone [Hydrocortisone 1% Crm] 1 applic TOP BID PRN 06/09/19 [History] Lactulose 45 ml PO TID 06/09/19 [History] OLANZapine [ZyPREXA] 5 mg PO ASDIRECTED PRN 06/09/19 [History] Spironolactone [Aldactone] 100 mg PO DAILY 06/09/19 [History] Vitamin B Complex 1 tab PO DAILY 06/09/19 [History] dexAMETHasone [Dexamethasone] 4 mg PO ASDIRECTED PRN 06/09/19 [History] traMADol [Ultram] 50 mg PO Q6H PRN 06/09/19 [History] oxyCODONE ER [OxyCONTIN] 10 mg PO BID #10 tab.er 06/22/19 [Rx] Celecoxib [CeleBREX] 200 mg PO DAILY #7 cap 06/23/19 [Rx] Nystatin [Nystop] 0 gm TOP TID 7 Days #1 bottle 06/23/19 [Rx] - Discharge Summary/Plan Comment DC Time >30 min.: Yes - General Info Date of Service: 06/23/19 Admission Dx/Problem (Free Text: His pain is controlled, groin is looking better after starting Nystatin powder. Pleurx catheter placed yesterday, had 4 L removed. Functional Status: Reports: Pain Controlled, Tolerating Diet - Patient Data Vitals - Most Recent: Last Vital Signs Temp 97.5 F 06/23/19 06:16 Pulse 104 H 06/23/19 06:16 Resp 16 06/23/19 06:16 BP 104/70 06/23/19 06:16 Pulse Ox 97 06/23/19 06:16 Weight - Most Recent: 174 lb I&O - Last 24 hours: Intake & Output 06/22/19 06/23/19 06/23/19 22:59 06:59 14:59 Intake Total 1100 300 Output Total 100 410 Balance 1000 -110 Med Orders - Current: Current Medications Carboxymethylcellulose (Refresh Optive) 0 ml EYEBOTH BID [facility] Last Admin: 06/23/19 08:46 Dose: 1 drop Celecoxib (Celebrex) 200 mg PO DAILY [facility] Last Admin: 06/23/19 08:45 Dose: 200 mg Al Hydroxide/Mg Hydroxide 30 ml/ Lidocaine HCl 30 ml/Diphenhydramine HCl 75 mg 0 ml PO QID [facility] Last Admin: 06/23/19 08:47 Dose: 30 ml Cyclobenzaprine HCl (Flexeril) 10 mg PO BEDTIME [facility] Last Admin: 06/22/19 20:09 Dose: 10 mg Folic Acid (Folic Acid) 1 mg PO DAILY [facility] Last Admin: 06/23/19 08:46 Dose: 1 mg Furosemide (Lasix) 40 mg PO Q48H [facility] Last Admin: 06/22/19 11:34 Dose: 40 mg Heparin Sodium (Porcine) (Heparin Lock Flush 100 Units/Ml) 300 units FLUSH ASDIRECTED PRN PRN Reason: Flush Last Admin: 06/22/19 15:30 Dose: 300 units Hydrocortisone Acetate (Hydrocortisone Acetate 1% Crm) 0 gm TOP BID PRN PRN Reason: ITCHING Lactulose (Cephulac) 15 gm PO TID [facility] Last Admin: 06/23/19 08:45 Dose: 15 gm Multivitamins (Total B With C) 1 each PO DAILY [facility] Last Admin: 06/23/19 08:47 Dose: 1 each Nystatin (Nystop) 0 gm TOP TID [facility] Last Admin: 06/23/19 08:46 Dose: 1 applic Oxycodone HCl (Oxycontin) 10 mg PO BID [facility] Last Admin: 06/23/19 08:46 Dose: 10 mg Oxycodone HCl (Oxycodone) 5 mg PO Q6H PRN PRN Reason: BREAKTHROUGH PAIN Last Admin: 06/21/19 22:30 Dose: 5 mg Prochlorperazine Maleate (Compazine) 10 mg PO QID PRN PRN Reason: Nausea/Vomiting Sodium Chloride (Saline Flush) 10 ml FLUSH ASDIRECTED PRN PRN Reason: Flush Last Admin: 06/22/19 15:29 Dose: 10 ml Spironolactone (Aldactone) 100 mg PO DAILY [facility] Last Admin: 06/23/19 08:45 Dose: 100 mg Tramadol HCl (Ultram) 50 mg PO Q6H PRN PRN Reason: MODERATE PAIN Last Admin: 06/21/19 23:37 Dose: 50 mg Discontinued Medications Dexamethasone (Dexamethasone) 4 mg PO ASDIRECTED PRN PRN Reason: CHEMO Vancomycin HCl 1.25 gm/ Sodium (Chloride) 250 mls @ 200 mls/hr IV Q12H [facility] Stop: 06/10/19 12:00 Last Admin: 06/10/19 08:01 Dose: 200 mls/hr Vancomycin HCl 1.25 gm/ Sodium (Chloride) 250 mls @ 200 mls/hr IV Q12H [facility] Stop: 06/20/19 09:14 Last Admin: 06/11/19 19:38 Dose: 200 mls/hr Vancomycin HCl 1 gm/ Sodium (Chloride) 250 mls @ 166.667 mls/hr IV Q12H [facility] Last Admin: 06/12/19 20:41 Dose: 166.667 mls/hr Vancomycin HCl (Vancomycin 1 Gm/200 Ml In D5w) 200 mls @ 200 mls/hr IV Q12H [facility] Stop: 06/20/19 12:30 Last Admin: 06/17/19 08:48 Dose: Not Given Vancomycin HCl (Vancomycin 1 Gm/200 Ml In D5w) 200 mls @ 200 mls/hr IV Q24H [facility] Stop: 06/20/19 23:59 Last Admin: 06/20/19 20:29 Dose: 200 mls/hr Lactated Ringer's (Ringers, Lactated) 1,000 mls @ 0 mls/hr IV ASDIRECTED [facility] Last Admin: 06/22/19 09:35 Dose: 50 mls/hr Lactulose 20 gm/ Lactulose 10 (gm) 30 gm PO TID [facility] Last Admin: 06/10/19 09:05 Dose: 30 gm Naproxen (Naprosyn) 500 mg PO BID [facility] Last Admin: 06/19/19 21:09 Dose: 500 mg Non-Formulary Medication (Tacrolimus [Protopic 0.1% Oint]) 1 applic TOP BID [facility] Last Admin: 06/13/19 15:50 Dose: Not Given Nystatin (Nystatin Crm) 0 gm TOP TID [facility] Last Admin: 06/20/19 13:31 Dose: 1 applic Olanzapine (Zyprexa) 5 mg PO ASDIRECTED PRN PRN Reason: CHEMOTHERAPY Oxycodone HCl (Oxycodone) 10 mg PO Q6H PRN PRN Reason: SEVERE PAIN Last Admin: 06/14/19 03:59 Dose: 10 mg Vancomycin HCl (Pharmacy To Dose - Vancomycin) 1 dose .XX ASDIRECTED [facility] Stop: 06/20/19 23:59 Vancomycin HCl (Vancomycin) Confirm Administered Dose 1 gm .ROUTE .STK-MED ONE Stop: 06/12/19 08:29 Last Admin: 06/12/19 08:33 Dose: Not Given Vancomycin HCl (Vancomycin) Confirm Administered Dose 1 gm .ROUTE .STK-MED ONE Stop: 06/12/19 19:53 Last Admin: 06/12/19 20:48 Dose: Not Given - Exam General: Reports: Alert, Oriented, No Acute Distress Lungs: Reports: Clear to Auscultation, Normal Respiratory Effort, Decreased Breath Sounds (bibasilar) Cardiovascular: Reports: Regular Rate, Regular Rhythm GI/Abdominal Exam: Normal Bowel Sounds, Soft, Non-Tender, Distended, Other ( Pleurx catheter in LLQ). No: Guarding, Rigid (Male) Exam: Rash (improving groin & under scrotum) Extremities: No Pedal Edema Skin: Reports: Ecchymosis *Q Meaningful Use (DIS) - VTE *Q VTE Pharmacological Contraindications *Q: Thrombocytopenia
[2019-06-23] MEDS: Sodium Chloride 0.9% 10 ML Syringe FLUSH PRN (13:05)
[2019-06-23 13:58] VITALS: BP 98/61; PULSE 97
== END 2019-06-23 13:20 | disposition hospice, home (50) | DRG 603 ==
LOC: FB.MS 14:40
PROVIDERS: ADMIT Family Medicine; ATTEND Family Medicine
PROC: 0W9G3ZZ Drainage of Peritoneal Cavity, Percutaneous Approach (ICD-10-PCS; principal; 2019-06-12)
PROC: 0W9G3ZZ Drainage of Peritoneal Cavity, Percutaneous Approach (ICD-10-PCS; 2019-06-15)
PROC: 0WHG33Z Insertion of Infusion Device into Peritoneal Cavity, Percutaneous Approach (ICD-10-PCS; 2019-06-22)
DX: L03.311 Cellulitis of abdominal wall (principal); F10.288 Alcohol dependence with other alcohol-induced disorder; C34.90 Malignant neoplasm of unspecified part of unspecified bronchus or lung; K70.31 Alcoholic cirrhosis of liver with ascites; Z51.5 Encounter for palliative care; Z66 Do not resuscitate; D69.6 Thrombocytopenia, unspecified; H54.8 Legal blindness, as defined in USA; R53.1 Weakness; I10 Essential (primary) hypertension; Z88.8 Allergy status to other drugs, medicaments and biological substances; Z79.899 Other long term (current) drug therapy; Z87.891 Personal history of nicotine dependence
CPT/HCPCS: 36415; 76705; 80048; 80202; 82565; 85025; 85610; 97110-GO; 97110-GP; 97116-GP; 97161-GP; 97165-GO; 97530-GP; A9270-GY; J1642; J2704; J3370; J7050; J7120